=== PATIENT | male | born 1950 | race Caucasian/White ===

== ENCOUNTER 2017-02-26 11:17 | Observation (INO) ==
--- NOTE | 2017-02-26 12:15 | Emergency Department Note ---
Disposition Clinical Impression: Chest pain, Shortness of breath Disposition: Admitted As Inpatient Condition: Good General Adult HPI - General Chief complaint: ED Chest Pain Stated complaint: chest pain Time Seen by Provider: 02/26/17 12:11 Source: patient Limitations: no limitations - History of Present Illness Pain Scale: 6 - Related Data Home Medications Medication Instructions Recorded Confirmed Allopurinol [Zyloprim] 300 mg PO DAILY 02/26/17 02/26/17 Coffee Extract [Green Coffee [place]] 400 mg PO DAILY 02/26/17 02/26/17 Colchicine [Mitigare] 0.6 mg PO DAILY 02/26/17 02/26/17 Garcinia Cambogia 1 tab PO DAILY 02/26/17 Ginkgo Biloba 120 mg PO DAILY 02/26/17 02/26/17 GlipiZIDE [Glipizide Xl] 5 mg PO DAILY 02/26/17 02/26/17 Lisinopril 2.5 mg PO DAILY 02/26/17 02/26/17 Metoprolol [Lopressor] 100 mg PO BID 02/26/17 02/26/17 Oxycodone HCl/Acetaminophen 1 tab PO DAILY 02/26/17 02/26/17 [Percocet 10-325 mg Tablet] Pregabalin [Lyrica] 50 mg PO BID 02/26/17 02/26/17 Warfarin [Coumadin] 1.5 mg PO MOSA 02/26/17 02/26/17 Warfarin [Coumadin] 3 mg PO SUTUWETHFR 02/26/17 02/26/17 Allergies Allergy/AdvReac Type Severity Reaction Status Date / Time No Known Allergies Allergy Verified 12/03/16 23:10 Past Medical History - Past Medical History Medical history: Reports: atrial fibrillation, diabetes, myocardial infarction Psychiatric history: Reports: no psych history - Social History Smoking Status: Never smoker Smokeless Tobacco Status: No Alcohol use: Reports: none Drug use: Reports: none Physical Exam - General Limitations: no limitations General appearance: alert, in no apparent distress Course Vital Signs Temperature 98.2 F 02/26/17 11:31 Pulse Rate 67 02/26/17 11:31 Respiratory Rate 16 02/26/17 11:31 Blood Pressure 108/68 02/26/17 11:31 O2 Sat by Pulse Oximetry 98 02/26/17 11:31 Temperature 97.8 F 02/27/17 10:14 Pulse Rate 60 02/27/17 10:14 Respiratory Rate 16 02/27/17 10:14 Blood Pressure 122/71 02/27/17 10:14 O2 Sat by Pulse Oximetry 94 02/27/17 10:14 Oxygen Delivery Oxygen Delivery Room Air Medical Decision Making - Lab Data Result diagrams: 02/26/17 12:53 02/26/17 12:53 Lab Results 02/26/17 02/26/17 02/26/17 Range/Units 12:30 12:53 12:53 WBC 7.0 (4.3-11.1) K/mcL RBC 3.96 L (4.19-5.50) M/mcL Hgb 12.4 L (12.9-16.9) g/dL Hct 38.1 (37.5-50.1) % MCV 96.2 (83.0-100.0) fL MCH 31.3 (28.0-33.3) pg MCHC 32.5 (31.6-35.5) g/dL RDW 13.2 (11.5-14.5) % Plt Count 112 L (140-400) K/mcL MPV 10.4 (9.4-12.4) fL Immature Gran % 0.1 (0-4) % Seg Neutrophils % 59.1 % Lymphocytes % 27.3 % Monocytes % 9.1 % Eosinophils % 3.8 % Basophils % 0.6 % Neutrophils # 4.2 (1.6-8.9) K/mcL Lymphocytes # 1.9 (0.6-4.6) K/mcL Monocytes # 0.6 (0.0-1.3) K/mcL Eosinophils # 0.3 (0.0-0.6) K/mcL Basophils # 0.0 (0.0-0.2) K/mcL PT 19.2 H (9.4-12.1) Seconds INR 1.8 APTT 35.0 (26.0-36.0) Seconds Sodium (136-145) mEq/L Potassium (3.5-4.5) mEq/L Chloride (98-109) mEq/L Carbon Dioxide (19-29) mEq/L BUN (8-26) mg/dL Creatinine (0.72-1.25) mg/dL Est GFR ( Amer) (> 60) Est GFR (Non-Af Amer) (> 60) BUN/Creatinine Ratio (6-26) Glucose (70-99) mg/dL Calculated Osmolality (280-300) Calcium (8.6-10.8) mg/dL Magnesium (1.6-2.6) mg/dL Troponin I (0-0.03) ng/mL B-Natriuretic Peptide (0-100) pg/mL TSH (0.350-4.840) mcIU/mL Urine Color Yellow (Yellow) Urine Clarity Clear (Clear) Urine pH 6.0 (5.0-8.0) pH Units Ur Specific [place] 1.012 (1.010-1.025) Urine Protein Negative (Neg-Trace) mg/dL Urine Glucose (UA) Normal (Normal) mg/dL Urine Ketones Negative (Negative) mg/dL Urine Blood Negative (Negative) Urine Nitrite Negative (Negative) Urine Bilirubin Negative (Negative) Urine Urobilinogen Normal (Normal) mg/dL Ur Leukocyte Esterase Negative (Negative) 02/26/17 02/26/17 02/26/17 Range/Units 12:53 12:53 12:53 WBC (4.3-11.1) K/mcL RBC (4.19-5.50) M/mcL Hgb (12.9-16.9) g/dL Hct (37.5-50.1) % MCV (83.0-100.0) fL MCH (28.0-33.3) pg MCHC (31.6-35.5) g/dL RDW (11.5-14.5) % Plt Count (140-400) K/mcL MPV (9.4-12.4) fL Immature Gran % (0-4) % Seg Neutrophils % % Lymphocytes % % Monocytes % % Eosinophils % % Basophils % % Neutrophils # (1.6-8.9) K/mcL Lymphocytes # (0.6-4.6) K/mcL Monocytes # (0.0-1.3) K/mcL Eosinophils # (0.0-0.6) K/mcL Basophils # (0.0-0.2) K/mcL PT (9.4-12.1) Seconds INR APTT (26.0-36.0) Seconds Sodium 143 (136-145) mEq/L Potassium 4.2 (3.5-4.5) mEq/L Chloride 107 (98-109) mEq/L Carbon Dioxide 27 (19-29) mEq/L BUN 25 (8-26) mg/dL Creatinine 1.24 (0.72-1.25) mg/dL Est GFR ( Amer) > 60 (> 60) Est GFR (Non-Af Amer) 58 L (> 60) BUN/Creatinine Ratio 20 (6-26) Glucose 85 (70-99) mg/dL Calculated Osmolality 300 (280-300) Calcium 9.5 (8.6-10.8) mg/dL Magnesium 2.3 (1.6-2.6) mg/dL Troponin I 0.00 (0-0.03) ng/mL B-Natriuretic Peptide (0-100) pg/mL TSH 2.310 (0.350-4.840) mcIU/mL Urine Color (Yellow) Urine Clarity (Clear) Urine pH (5.0-8.0) pH Units Ur Specific [place] (1.010-1.025) Urine Protein (Neg-Trace) mg/dL Urine Glucose (UA) (Normal) mg/dL Urine Ketones (Negative) mg/dL Urine Blood (Negative) Urine Nitrite (Negative) Urine Bilirubin (Negative) Urine Urobilinogen (Normal) mg/dL Ur Leukocyte Esterase (Negative) 02/26/17 Range/Units 12:53 WBC (4.3-11.1) K/mcL RBC (4.19-5.50) M/mcL Hgb (12.9-16.9) g/dL Hct (37.5-50.1) % MCV (83.0-100.0) fL MCH (28.0-33.3) pg MCHC (31.6-35.5) g/dL RDW (11.5-14.5) % Plt Count (140-400) K/mcL MPV (9.4-12.4) fL Immature Gran % (0-4) % Seg Neutrophils % % Lymphocytes % % Monocytes % % Eosinophils % % Basophils % % Neutrophils # (1.6-8.9) K/mcL Lymphocytes # (0.6-4.6) K/mcL Monocytes # (0.0-1.3) K/mcL Eosinophils # (0.0-0.6) K/mcL Basophils # (0.0-0.2) K/mcL PT (9.4-12.1) Seconds INR APTT (26.0-36.0) Seconds Sodium (136-145) mEq/L Potassium (3.5-4.5) mEq/L Chloride (98-109) mEq/L Carbon Dioxide (19-29) mEq/L BUN (8-26) mg/dL Creatinine (0.72-1.25) mg/dL Est GFR ( Amer) (> 60) Est GFR (Non-Af Amer) (> 60) BUN/Creatinine Ratio (6-26) Glucose (70-99) mg/dL Calculated Osmolality (280-300) Calcium (8.6-10.8) mg/dL Magnesium (1.6-2.6) mg/dL Troponin I (0-0.03) ng/mL B-Natriuretic Peptide 177 H (0-100) pg/mL TSH (0.350-4.840) mcIU/mL Urine Color (Yellow) Urine Clarity (Clear) Urine pH (5.0-8.0) pH Units Ur Specific [place] (1.010-1.025) Urine Protein (Neg-Trace) mg/dL Urine Glucose (UA) (Normal) mg/dL Urine Ketones (Negative) mg/dL Urine Blood (Negative) Urine Nitrite (Negative) Urine Bilirubin (Negative) Urine Urobilinogen (Normal) mg/dL Ur Leukocyte Esterase (Negative) Attestation Statement - Attestation Attestation: I examined this patient and my medical decision-making was reviewed with the Resident Physician. I agree with the documented findings, disposition and treatment plan as described except to the extent set forth below. Myaw-co-wohh time provided Patient presents with chest pain. History of coronary artery disease, CABG. Appears in no acute distress on exam. EKG reviewed by me showing atrial fibrillation
[2017-02-26 12:47] LABS: Bilirubin,Urine Negative (Negative); Blood,Urine Negative (Negative); Clarity,Urine Clear (Clear); Color,Urine Yellow (Yellow); Glucose,Urine (UA) Normal (Normal); Ketones,Urine Negative (Negative); Leukocyte Esterase,Urine Negative (Negative); Nitrite,Urine Negative (Negative); Protein,Urine Negative (Neg-Trace); Specific Gravity,Urine 1.012 (1.010-1.025); Urobilinogen,Urine Normal (Normal)
[2017-02-26 13:02] LABS: Basophils % 0.6 %; Eosinophils # 0.3 K/mcL (0.0-0.6); Eosinophils % 3.8 %; Hematocrit 38.1 % (37.5-50.1); Hemoglobin 12.4 g/dL (12.9-16.9); Immature Granulocytes % 0.1 % (0-4); Lymphocytes # 1.9 K/mcL (0.6-4.6); Lymphocytes % 27.3 %; Mean Corpuscular HGB Conc 32.5 g/dL (31.6-35.5); Mean Corpuscular Hemoglobin 31.3 pg (28.0-33.3); Mean Corpuscular Volume 96.2 fL (83.0-100.0); Mean Platelet Volume 10.4 fL (9.4-12.4); Monocytes # 0.6 K/mcL (0.0-1.3); Monocytes % 9.1 %; Neutrophils # 4.2 K/mcL (1.6-8.9); Platelet Count 112 K/mcL (140-400); Red Blood Count 3.96 M/mcL (4.19-5.50); Red Cell Distribution Width 13.2 % (11.5-14.5); Segmented Neutrophils % 59.1 %
[2017-02-26 13:05] LABS: INR 1.8; Prothrombin Time 19.2 Seconds (9.4-12.1)
[2017-02-26 13:11] LABS: Magnesium 2.3 mg/dL (1.6-2.6)
[2017-02-26 13:16] LABS: BUN/Creatinine Ratio 20 (6-26); Blood Urea Nitrogen 25 mg/dL (8-26); Calcium 9.5 mg/dL (8.6-10.8); Carbon Dioxide 27 mEq/L (19-29); Chloride 107 mEq/L (98-109); Glucose 85 mg/dL (70-99); Osmolality,Calculated 300 (280-300); Potassium 4.2 mEq/L (3.5-4.5); Sodium 143 mEq/L (136-145); eGFR For African Americans > 60 (> 60); eGFR For Non-African Americans 58 (> 60)
[2017-02-26 13:34] LABS: Thyroid Stimulating Hormone 2.31 mcIU/mL (0.350-4.840)
--- NOTE | 2017-02-26 13:49 | Emergency Department Note ---
Disposition Clinical Impression: Shortness of breath Chest pain Qualifiers: Chest pain type: unspecified Qualified Code(s): R07.9 - Chest pain, unspecified Disposition: Admitted As Inpatient Condition: Good Referrals: Foster Buenrostro MD [Primary Care Provider] - Forms: ED Satisfaction Letter Chest Pain HPI - General Chief Complaint: ED Chest Pain Stated Complaint: chest pain Time Seen by Provider: 02/26/17 12:11 Source: patient Limitations: no limitations Vital Signs Reviewed: Yes Nursing Notes Reviewed: Yes - History of Present Illness HPI Narrative: Patient presents today for evaluation of shortness of breath and chest pain. Shortness of breath has been going on for approximately 1 week. Chest pain has been going on since earlier today. Patient awoke at 5 AM with chest pain. Describes in the center of his chest. Patient describes the pain as sharp. Not worse with inspiration or exertion. Patient states that the pain has intermittently come and gone. Patient is unable to further quantify the pain. Pain is different from previous [place] that was associated with nausea and diaphoresis. Severity scale (1-10): 6 - Related Data Home Medications Medication Instructions Recorded Confirmed Allopurinol [Zyloprim] 300 mg PO DAILY 02/26/17 02/26/17 Coffee Extract [Green Coffee [place]] 400 mg PO DAILY 02/26/17 02/26/17 Colchicine [Mitigare] 0.6 mg PO DAILY 02/26/17 02/26/17 Garcinia Cambogia 1 tab PO DAILY 02/26/17 Ginkgo Biloba 120 mg PO DAILY 02/26/17 02/26/17 GlipiZIDE [Glipizide Xl] 5 mg PO DAILY 02/26/17 02/26/17 Lisinopril 2.5 mg PO DAILY 02/26/17 02/26/17 Metoprolol [Lopressor] 100 mg PO BID 02/26/17 02/26/17 Oxycodone HCl/Acetaminophen 1 tab PO DAILY 02/26/17 02/26/17 [Percocet 10-325 mg Tablet] Pregabalin [Lyrica] 50 mg PO BID 02/26/17 02/26/17 Warfarin [Coumadin] 1.5 mg PO MOSA 02/26/17 02/26/17 Warfarin [Coumadin] 3 mg PO SUTUWETHFR 02/26/17 02/26/17 Allergies Allergy/AdvReac Type Severity Reaction Status Date / Time No Known Allergies Allergy Verified 12/03/16 23:10 Review of Systems: GENERAL: ~No weight change, change in appetite, thirst, fever or chills. HEENT: ~No headache or blurred vision. CARDIOPULMONARY: ~Chest pain; shortness of breath GASTROINTESTINAL: ~No anorexia, nausea or vomiting. GENITOURINARY: ~No dysuria or pyuria. ENDOCRINE: ~No goiter, lethargy or heat/cold intolerance. HEMATOLOGY/ONCOLOGY: ~No pallor, bruising or bleeding. MUSCULOSKELETAL: ~No change in strength. No swelling. NEUROLOGIC: ~No headache or loss of consciousness. PSYCHIATRIC: ~No change in personality, affect or depression. Chest Pain PMH - Past Medical History Medical history: Reports: atrial fibrillation, diabetes, myocardial infarction Psychiatric history: Reports: no psych history - Social History Smoking Status: Never smoker Alcohol use: Reports: none Drug use: Reports: none Physical Exam General: Well appearing, nontoxic, no acute distress Head: Normocephalic Atraumatic Eyes: PERRL, EOMI ENT: Airway patent, no stridor Neck: supple, no meningismus Chest: Lungs clear to auscultation bilateral Cardiac: Regular rate and Irregular rhythm, no murmurs, rubs or gallops Abdomen: soft, nontender, nondistended; no guarding, rebound, or tenderness to percussion Musculoskeletal: Patient is wearing compression stockings. Patient does have what appears to be 2+ pitting edema through the lower extremities. no palpable cord; Skin: No rash, normal skin tone Neuro: Alert and Oriented to person, place, and time; No focal deficit, CN 2-12 symmetric and intact - General Limitations: no limitations General appearance: alert, in no apparent distress Course - Reevaluation(s) Reevaluation #1: Patient continues to be stable at this time. No acute chest pain. Patient does have a significant cardiac history and risk factors. Pain is not hypoxic nor tachycardic. Abdomen soft nontender. Patient has not had a recent cardiac workup. Was unable to make his last scheduled stress test which was earlier this year. Vital Signs Temperature 98.2 F 02/26/17 11:31 Pulse Rate 67 02/26/17 11:31 Respiratory Rate 16 02/26/17 11:31 Blood Pressure 108/68 02/26/17 11:31 O2 Sat by Pulse Oximetry 98 02/26/17 11:31 Temperature 98.2 F 02/26/17 11:31 Pulse Rate 67 02/26/17 11:31 Respiratory Rate 16 02/26/17 11:31 Blood Pressure 108/68 02/26/17 11:31 O2 Sat by Pulse Oximetry 98 02/26/17 11:31 Chest Pain - Lab Data Result diagrams: 02/26/17 12:53 02/26/17 12:53 Lab Results 02/26/17 02/26/17 02/26/17 Range/Units 12:30 12:53 12:53 WBC 7.0 (4.3-11.1) K/mcL RBC 3.96 L (4.19-5.50) M/mcL Hgb 12.4 L (12.9-16.9) g/dL Hct 38.1 (37.5-50.1) % MCV 96.2 (83.0-100.0) fL MCH 31.3 (28.0-33.3) pg MCHC 32.5 (31.6-35.5) g/dL RDW 13.2 (11.5-14.5) % Plt Count 112 L (140-400) K/mcL MPV 10.4 (9.4-12.4) fL Immature Gran % 0.1 (0-4) % Seg Neutrophils % 59.1 % Lymphocytes % 27.3 % Monocytes % 9.1 % Eosinophils % 3.8 % Basophils % 0.6 % Neutrophils # 4.2 (1.6-8.9) K/mcL Lymphocytes # 1.9 (0.6-4.6) K/mcL Monocytes # 0.6 (0.0-1.3) K/mcL Eosinophils # 0.3 (0.0-0.6) K/mcL Basophils # 0.0 (0.0-0.2) K/mcL PT 19.2 H (9.4-12.1) Seconds INR 1.8 APTT 35.0 (26.0-36.0) Seconds Sodium (136-145) mEq/L Potassium (3.5-4.5) mEq/L Chloride (98-109) mEq/L Carbon Dioxide (19-29) mEq/L BUN (8-26) mg/dL Creatinine (0.72-1.25) mg/dL Est GFR ( Amer) (> 60) Est GFR (Non-Af Amer) (> 60) BUN/Creatinine Ratio (6-26) Glucose (70-99) mg/dL Calculated Osmolality (280-300) Calcium (8.6-10.8) mg/dL Magnesium (1.6-2.6) mg/dL Troponin I (0-0.03) ng/mL TSH (0.350-4.840) mcIU/mL Urine Color Yellow (Yellow) Urine Clarity Clear (Clear) Urine pH 6.0 (5.0-8.0) pH Units Ur Specific [place] 1.012 (1.010-1.025) Urine Protein Negative (Neg-Trace) mg/dL Urine Glucose (UA) Normal (Normal) mg/dL Urine Ketones Negative (Negative) mg/dL Urine Blood Negative (Negative) Urine Nitrite Negative (Negative) Urine Bilirubin Negative (Negative) Urine Urobilinogen Normal (Normal) mg/dL Ur Leukocyte Esterase Negative (Negative) 02/26/17 02/26/17 02/26/17 Range/Units 12:53 12:53 12:53 WBC (4.3-11.1) K/mcL RBC (4.19-5.50) M/mcL Hgb (12.9-16.9) g/dL Hct (37.5-50.1) % MCV (83.0-100.0) fL MCH (28.0-33.3) pg MCHC (31.6-35.5) g/dL RDW (11.5-14.5) % Plt Count (140-400) K/mcL MPV (9.4-12.4) fL Immature Gran % (0-4) % Seg Neutrophils % % Lymphocytes % % Monocytes % % Eosinophils % % Basophils % % Neutrophils # (1.6-8.9) K/mcL Lymphocytes # (0.6-4.6) K/mcL Monocytes # (0.0-1.3) K/mcL Eosinophils # (0.0-0.6) K/mcL Basophils # (0.0-0.2) K/mcL PT (9.4-12.1) Seconds INR APTT (26.0-36.0) Seconds Sodium 143 (136-145) mEq/L Potassium 4.2 (3.5-4.5) mEq/L Chloride 107 (98-109) mEq/L Carbon Dioxide 27 (19-29) mEq/L BUN 25 (8-26) mg/dL Creatinine 1.24 (0.72-1.25) mg/dL Est GFR ( Amer) > 60 (> 60) Est GFR (Non-Af Amer) 58 L (> 60) BUN/Creatinine Ratio 20 (6-26) Glucose 85 (70-99) mg/dL Calculated Osmolality 300 (280-300) Calcium 9.5 (8.6-10.8) mg/dL Magnesium 2.3 (1.6-2.6) mg/dL Troponin I 0.00 (0-0.03) ng/mL TSH 2.310 (0.350-4.840) mcIU/mL Urine Color (Yellow) Urine Clarity (Clear) Urine pH (5.0-8.0) pH Units Ur Specific [place] (1.010-1.025) Urine Protein (Neg-Trace) mg/dL Urine Glucose (UA) (Normal) mg/dL Urine Ketones (Negative) mg/dL Urine Blood (Negative) Urine Nitrite (Negative) Urine Bilirubin (Negative) Urine Urobilinogen (Normal) mg/dL Ur Leukocyte Esterase (Negative) - EKG Data EKG attestation: Yes I reviewed and interpreted this EKG. EKG results narrative: EKG shows atrial fibrillation with a ventricular rate of 62 bpm. QRS 115. QTC 451. Patient has no significant ST elevations or depressions. Patient has flattening of the T waves in the inferior leads 3 and aVF. No other significant changes from previous EKG of 07/15/14.
[2017-02-26] MEDS ORDERED: *HR* Morphine 2 MG/ML SYRINGE IVP PRN (15:35)
[2017-02-26] MEDS ORDERED: Naloxone 0.4 MG/ML INJ IVP PRN (15:35)
[2017-02-26] MEDS ORDERED: Acetaminophen 325 MG TABLET PO PRN (15:35)
--- NOTE | 2017-02-26 16:13 | Internal Med History&Physical ---
Date of Encounter: 02/26/17 Time of Encounter: 16:12 Assessment and Plan (1) Chest pain Current visit: Yes Status: Acute Atypical chest pain. However given patient's history of coronary artery disease and reported prior MT, high risk for ACS. We will trend troponins. Keep on telemetry. EKG in a.m. We will schedule cardiac stress test tomorrow. High risk for complications. Qualifiers: Chest pain type: precordial pain Qualified Code(s): R07.2 - Precordial pain (2) Mitral valve prolapse Current visit: Yes Status: Chronic Chronic. We will get 2-D echocardiogram. Per last 2-D echocardiogram done in August, he had moderate prolapse of posterior mitral valve leaflet. (3) Coronary artery disease Current visit: Yes Status: Chronic Continue home medications, aspirin, beta tierra. We will check lipid profile. Qualifiers: Coronary Disease-Associated Artery/Lesion type: [place] artery [place] vs. transplanted heart: [place] heart Associated angina: with stable angina Qualified Code(s): I25.118 - Atherosclerotic heart disease of [place] coronary artery with other forms of angina pectoris (4) Atrial fibrillation Current visit: Yes Status: Chronic Rate controlled. On anticoagulation with Coumadin. INR is subtherapeutic. Continue Coumadin. Qualifiers: Atrial fibrillation type: paroxysmal Qualified Code(s): I48.0 - Paroxysmal atrial fibrillation (5) Diabetes mellitus Current visit: Yes Status: Chronic Check A1c. Place patient on sliding scale insulin. Monitor blood sugars closely. Diabetic diet. Qualifiers: Diabetes mellitus type: type 2 Diabetes mellitus complication status: without complication Diabetes mellitus terminal press operator insulin use: without terminal press operator use Qualified Code(s): E11.9 - Type 2 diabetes mellitus without complications (6) Essential hypertension Current visit: Yes Status: Chronic Blood pressure is well controlled. Continue home medications (7) Congestive heart failure Current visit: Yes Status: Acute Mild congestive heart failure. Will place patient on intravenous Lasix. Qualifiers: Congestive heart failure type: diastolic Congestive heart failure chronicity: acute on chronic Qualified Code(s): I50.33 - Acute on chronic diastolic (congestive) heart failure Internal Medicine - H&P: HPI Chief complaint: Chest pain Admitted From: Emergency Dept Plans for Post Hospital Care: Home History of present illness: Mr. Beltrán is a 66 year old male patient with history of coronary artery disease and prior MT came to the ER with complaints of chest pain. Pain is substernal in location. It has been going on intermittently for about 4-5 days now. He began in the middle of last week and has been getting resolving and relapsing spontaneously since then. Pain is sharp and nonradiating. No associated shortness of breath. However patient has been having increased exertional dyspnea along with pedal edema today. He does have a history of mitral valve prolapse and atrial fibrillation. Patient takes Lasix and metolazone at home to help with his pedal edema. He denies any orthopnea or PND at this time. Past Med Surg Social Fam HX - Past Medical History Attestation: Yes The following information was validated with the patient. Source: patient Medical history: atrial fibrillation, diabetes, hypertension, myocardial infarction, valvular heart disease (mitral valve prolapse) Psychiatric history: no psych history - Past Surgical History Surgical History: other (Open heart surgery for atrial septal defect) - Social History Smoking Status: Never smoker Smokeless Tobacco Status: No Alcohol use: none Drug use: none - Additional Family History Additional family history: Reviewed and found to be noncontributory at this time Internal Medicine - H&P: Meds Allopurinol [Zyloprim] 300 mg PO DAILY 02/26/17 [History] Coffee Extract [Green Coffee [place]] 400 mg PO DAILY 02/26/17 [History] Colchicine [Mitigare] 0.6 mg PO DAILY 02/26/17 [History] Garcinia Cambogia 1 tab PO DAILY 02/26/17 [History] Ginkgo Biloba 120 mg PO DAILY 02/26/17 [History] GlipiZIDE [Glipizide Xl] 5 mg PO DAILY 02/26/17 [History] Lisinopril 2.5 mg PO DAILY 02/26/17 [History] Metoprolol [Lopressor] 100 mg PO BID 02/26/17 [History] Oxycodone HCl/Acetaminophen [Percocet 10-325 mg Tablet] 1 tab PO DAILY 02/26/17 [History] Pregabalin [Lyrica] 50 mg PO BID 02/26/17 [History] Warfarin [Coumadin] 1.5 mg PO MOSA 02/26/17 [History] Warfarin [Coumadin] 3 mg PO SUTUWETHFR 02/26/17 [History] 3 Allergy/AdvReac Type Severity Reaction Status Date / Time No Known Allergies Allergy Verified 12/03/16 23:10 All Systems PM: A 10-system review of systems was performed and is negative for pertinent findings except as documented above in the HPI. - Constitutional Constitutional: no chills, no fever(s), no night sweats - EENT Eyes: no change in vision, no discharge, no pain, no photophobia Ears: no ear discharge, no ear pain, no tinnitus Nose, mouth and throat: no dysphagia, no nasal discharge, no neck pain, no sore throat - Cardiovascular Cardiovascular ROS IM: chest pain, dyspnea on exertion, no diaphoresis, no dyspnea, no lightheadedness, no palpitations, no syncope - Respiratory Respiratory: no cough, no dyspnea, no wheezing, no excessive phlegm production - Gastrointestinal Gastrointestinal: no abdominal pain, no diarrhea, no hematemesis, no hematochezia, no melena, no nausea, no vomiting - Musculoskeletal Musculoskeletal ROS IM: no numbness, no tingling - Integumentary Integumentary IM: no rash, no unusual bruising - Neurological Neurological ROS: no confusion, no convulsions, no focal weakness, no numbness, no tingling, no tremor(s) - Hematologic/Lymphatic Hematologic/Lymphatic: no easy bruising - Constitutional Vitals: Temp Pulse Resp BP Pulse Ox 98.2 F 72 16 137/89 97 02/26/17 11:31 02/26/17 14:40 02/26/17 11:31 02/26/17 14:40 02/26/17 14:40 General appearance: Present: cooperative, mild distress, A&O X 3, answers questions appropriately - Neck Neck exam general surgery: Present: supple, trachea midline. Absent: lymphadenopathy - Respiratory Respiratory exam: Present: CTAB. Absent: accessory muscle use, rales, rhonchi, wheezes - Cardiovascular Cardiovascular exam: Present: RRR, +S1, +S2. Absent: diastolic murmur, gallop, rubs, systolic murmur - GI/Abdominal GI/Abdominal exam: Present: normal bowel sounds, soft, no peritoneal signs. Absent: distended, tenderness - Extremities Exam Extremities exam: Present: warm, radial pulses palpable and symmetrical. Absent : calf tenderness, cyanotic, pedal edema - Neurological Exam Neurological exam: Present: alert, CN II-XII intact, oriented X3, no focal deficits. Absent: facial droop, speech deficit - Skin Skin exam: Present: dry, intact Internal Med - H&P Results - Labs CBC & Chem 7: 02/26/17 12:53 02/26/17 12:53 - EKG Data -: EKG Interpreted by Myself - EKG Data Prior EKG available for review: yes When compared to previous EKG: there is no significant change EKG comments: 02/26/17 16:12 Atrial fibrillation and incomplete right bundle branch block 02/26/17 17:12 - Impressions Impressions Chest X-Ray 02/26/17 11:46 IMPRESSION: 1. No active pulmonary disease. 2. Stable cardiomegaly without overt failure. D/ / Ezequiel Haq MD / Ezequiel Haq MD Interpreting Provider: Ezequiel Haq MD
[2017-02-26] MEDS ORDERED: Dextrose Gel 15 GM PO PRN ×2 (17:19)
[2017-02-26] MEDS ORDERED: *HR* Dextrose 50 % in Water (Syg) 50 ML SYRINGE IVP PRN (17:19)
[2017-02-26] MEDS ORDERED: D5% in Water 1,000 ML IVC PRN (17:19)
[2017-02-26] MEDS: Furosemide 40 MG/4 ML VIAL IVP SCH (17:43)
[2017-02-26] MEDS ORDERED: *HR* Warfarin 3 MG TABLET PO ONE (18:00)
[2017-02-26] MEDS ORDERED: Warfarin perPT PO PRN (18:00)
[2017-02-26] MEDS: Pregabalin 50 MG CAPSULE PO SCH (20:07)
[2017-02-26] MEDS: Metoprolol 100 MG TABLET PO SCH (20:07)
[2017-02-26] MEDS ORDERED: Insulin LISPRO 300 UNITS/3 ML VIAL SQ SCH (21:00)
[2017-02-27 02:30] LABS: Hemoglobin A1C 5.3 %
[2017-02-27 02:32] LABS: Chol/HDL Ratio 6.3 (0-4.9)
[2017-02-27] MEDS ORDERED: Regadenoson 0.4 MG/5 ML SYRINGE IVP ONE (05:40)
[2017-02-27] MEDS ORDERED: Colchicine 0.6 MG TABLET PO SCH (09:00)
[2017-02-27] MEDS ORDERED: *HR* OxyCODONE/APAP 10/325 TABLET PO SCH (09:00)
[2017-02-27] MEDS ORDERED: Aspirin Enteric Coated 81 MG Tablet PO SCH (09:00)
[2017-02-27] MEDS: Pregabalin 50 MG CAPSULE PO SCH (10:14)
[2017-02-27] MEDS: Metoprolol 100 MG TABLET PO SCH (10:16)
[2017-02-27] MEDS: Furosemide 40 MG/4 ML VIAL IVP SCH (10:16)
[2017-02-27] MEDS: Insulin LISPRO 300 UNITS/3 ML VIAL SQ SCH ×3 (10:22→16:54)
[2017-02-27 15:25] LABS: INR 1.7; Prothrombin Time 18.8 Seconds (9.4-12.1)
--- NOTE | 2017-02-27 16:01 | Electrocardiograph Report ---
[address] [address] Test Date: 2017-02-26 Pat Name: Wesly Beltrán Department: 102 Room: 3B Gender: M Associate Software Developer: : [id number] Requested By: Narayan Woodall Order Number: [id number] Reading MD: Derrick Hamilton Measurements Intervals [place] Rate: 62 P: MO: 0 QRS: 34 QRSD: 115 T: 48 QT: 447 QTc: 451 Interpretive Statements ATRIAL FIBRILLATION LOW QRS VOLTAGE IN PRECORDIAL LEADS INCOMPLETE RIGHT BUNDLE BRANCH BLOCK MINIMAL ST DEPRESSION ABNORMAL RHYTHM ECG Electronically Signed On 02-27-2017 16:00:20 EDT by Derrick Hamilton
[2017-02-27 16:47] VITALS: BP 114/59
--- NOTE | 2017-02-27 16:56 | Discharge Summary ---
Date of Encounter: 02/27/17 Time of Encounter: 10:35 - Discharge Diagnosis (1) Chest pain Priority: Secondary Status: Acute Comments: Patient reported to the emergency department with 5 day history of sharp, jabbing chest pains with exertion. He denies any radiation, no nausea vomiting or diaphoresis. He reports increasing dyspnea, as well as increasing lower extremity edema. Chest pain became increasingly worse over the 5 days, did not increase in frequency or duration. Yesterday morning the pain awakened him at 5 AM and he was unable to return to sleep. Family encouraged him to come to the emergency department for evaluation. Due to his past history of coronary artery disease and reported WA, he is at high risk for acute coronary syndrome. He was admitted for evaluation and testing. Chest x-ray was negative for any acute process, was positive for cardio megaly. Patient's vital signs and stable throughout the visit. BNP 177, only mildly elevated. His lungs are clear and diminished in posterior valerio. Stress test had a medium sized fixed perfusion defect that represented artifact, there is no ischemia or infarct. Gated EF of 50%. A limited echo with LVEF of 55%, normal systolic function, RV mildly dilated with probable mild decrease in function. There is severe biatrial enlargement and there is prolapsing posterior leaflet associated with eccentric mitral regurgitation. Patient will need to have a KUSHAL outpatient for better visualization. He will need to follow up with cardiology in the clinic as well. Patient currently denies chest pain and states that he feels better. His vitals are stable, all testing has been negative. He is stable and ready for discharge. Qualifiers: Chest pain type: precordial pain Qualified Code(s): R07.2 - Precordial pain (2) Mitral valve prolapse Priority: Secondary Status: Chronic Comments: Per patient history. (3) Coronary artery disease Priority: Secondary Status: Chronic Comments: Continue aspirin, beta tierra. Patient denies chest pain today. Lipid panel only mildly elevated. Cholesterol 201, HDL 32. Continue Zocor. Qualifiers: Coronary Disease-Associated Artery/Lesion type: [place] artery [place] vs. transplanted heart: king [place] heart Associated angina: with stable angina Qualified Code(s): I25.118 - Atherosclerotic heart disease of [place] coronary artery with other forms of angina pectoris (4) Atrial fibrillation Priority: Secondary Status: Chronic Comments: Rate controlled with beta tierra. Coumadin for anticoagulation. Continue medications at home. INR remained subtherapeutic today at 1.7. Continue to monitor labs on outpatient basis. Qualifiers: Atrial fibrillation type: paroxysmal Qualified Code(s): I48.0 - Paroxysmal atrial fibrillation (5) Diabetes mellitus Priority: Secondary Status: Chronic Comments: Well-controlled diabetes. A1c is 5.3. Continue Accu-Cheks at home. Qualifiers: Diabetes mellitus type: type 2 Diabetes mellitus complication status: without complication Diabetes mellitus supervisor press room insulin use: without supervisor press room use Qualified Code(s): E11.9 - Type 2 diabetes mellitus without complications (6) Essential hypertension Priority: Secondary Status: Chronic Comments: Blood pressure well controlled in inpatient setting. Continue home medications. Continue to monitor vital signs at home, share with primary care. (7) Congestive heart failure Priority: Secondary Status: Chronic Comments: Patient with chronic CHF. Per echo in August,, there is normal LV systolic function, indeterminant LVDD. Patient in mild exacerbation. He states that he does feel significantly better and that his lower extremity edema has improved. Patient without pretibial edema at this time, no edema to ankles or bilateral feet. Patient does have some firm edema distal to knee, however patient reports profound improvement. Qualifiers: Congestive heart failure type: unspecified congestive heart failure type Congestive heart failure chronicity: acute on chronic Qualified Code(s): I50.9 - Heart failure, unspecified (8) DVT prophylaxis Priority: Secondary Status: Acute Comments: Patient on Coumadin. - Discharge Medications Home Medications: Allopurinol [Zyloprim] 300 mg PO DAILY 02/26/17 [History] Coffee Extract [Green Coffee [place]] 400 mg PO DAILY 02/26/17 [History] Colchicine [Mitigare] 0.6 mg PO DAILY 02/26/17 [History] Garcinia Cambogia 1 tab PO DAILY 02/26/17 [History] Ginkgo Biloba 120 mg PO DAILY 02/26/17 [History] GlipiZIDE [Glipizide Xl] 5 mg PO DAILY 02/26/17 [History] Lisinopril 2.5 mg PO DAILY 02/26/17 [History] Metoprolol [Lopressor] 100 mg PO BID 02/26/17 [History] Oxycodone HCl/Acetaminophen [Percocet 10-325 mg Tablet] 1 tab PO DAILY 02/26/17 [History] Pregabalin [Lyrica] 50 mg PO BID 02/26/17 [History] Warfarin [Coumadin] 1.5 mg PO MOSA 02/26/17 [History] Warfarin [Coumadin] 3 mg PO SUTUWETHFR 02/26/17 [History] Simvastatin [Zocor] 10 mg PO HS tablet 02/27/17 [Rx] Allergies/Adverse Reactions: 3 Allergy/AdvReac Type Severity Reaction Status Date / Time No Known Allergies Allergy Verified 12/03/16 23:10 Procedures/tests Complete & Pending: Procedures Performed prior 72 hours Category Date Time Status NM melida perf SPECT multi [NM] Routine Exams 02/26/17 16:25 Taken EKG [ECG 12 lead ECG] [ECG] AM 0600 Y 02/27/17 06:00 Ordered EV limited echocardiogram Routine Y 02/27/17 16:24 Completed SP pharm nuclear stress Routine Y 02/27/17 07:15 Completed Date of admission: 02/26/17 14:13 Primary care physician: Foster Buenrostro MD Discharging clinician: Lakeisha Copeland Anticipated date of discharge: 02/27/17 - Patient Status Disposition: Home, Self-Care Functional capacity at discharge: independent ambulation Overall status at discharge: patient is back to baseline - Discharge Instructions Follow Up With: Foster Buenrostro MD [Primary Care Provider] - 03/02/17 10:30 am Additional Instructions: Postoperative primary care provider in the next 7-10 days for follow-up visit. Continue home medications. Resume normal activities as tolerated. Weigh yourself daily. Maintain fluid restriction to about 1.5 L daily. Continue your home dose of Lasix. - Diet and Activity Activity: increase activity as tolerated Diet: diabetic diet, low fat, low cholesterol Hospital course: Mr. Beltrán is a 66 year old male with pmh of CAD, [place], MVP, afib, DM, HTN, CHF presented to the ED with c/o chest pain for 4-5 days. Pt reports that it was intermittent, sharp and nonradiating. No SOB, N/v diaphoresis. Pt reports increasing dyspnea and peripheral edema. Now he reports improved edema and denies SOB. States that he feels better and is ready for discharge. See assessment and plan for hospital course. Labs WNL, VS stable and WNL. Pt is ready for discharge. - Time Spent with Patient Total time spent providing and/or coordinating discharge services: Less than 30 minutes - Constitutional Vitals: Temp Pulse Resp BP Pulse Ox 98 F 65 16 114/59 95 02/27/17 16:46 02/27/17 16:46 02/27/17 16:46 02/27/17 16:46 02/27/17 16:46 General appearance: Present: cooperative, mild distress, A&O X 3, pleasant, obese, answers questions appropriately - Head Head exam: Present: atraumatic, normal inspection, normocephalic - Eye Eye exam: Present: normal appearance, conjuntiva pink, sclera anicteric - Neck Neck exam general surgery: Present: supple, trachea midline. Absent: lymphadenopathy, tenderness - Respiratory Respiratory exam: Present: CTAB. Absent: accessory muscle use, rales, respiratory distress, rhonchi, wheezes - Cardiovascular Cardiovascular exam: Absent: diastolic murmur, gallop, rubs, systolic murmur Additional comments: 2/6 murmur heard LSB - GI/Abdominal GI/Abdominal exam: Present: normal bowel sounds, soft. Absent: distended, hepatomegaly, tenderness - Extremities Exam Extremities exam: Present: normal capillary refill, warm, radial pulses palpable and symmetrical. Absent: calf tenderness, cyanotic, pedal edema, tenderness Additional comments: Patient with +1 nonpitting edema to bilateral lower extremities. Patient with firm or edema just distal to knees. - Neurological Exam Neurological exam: Present: alert, oriented X3, no focal deficits. Absent: facial droop, speech deficit - Skin Skin exam: Present: dry, intact, normal color, warm. Absent: rash - VTE Documentation of Mechanical Device: Graduated compression elastic hosiery
[2017-02-27] MEDS ORDERED: *HR* Warfarin 3 MG TABLET PO ONE (18:00)
== END 2017-02-27 18:49 | disposition home or self-care (01) ==
LOC: 3BNU 11:17 → EMEROO 11:17 → 3BNU 15:01
PROVIDERS: ADMIT Internal Medicine; ATTEND Registered Nurse

== ENCOUNTER 2019-04-20 22:44 | Inpatient (IN) ==
[2019-04-20] MEDS ORDERED: *HR* Dextrose 50 % in Water (Syg) 50 ML SYRINGE IVP ONE (22:54)
[2019-04-20] MEDS ORDERED: *HR* Dextrose 50 % in Water (Syg) 50 ML SYRINGE ONE (22:55)
[2019-04-20] MEDS: Octreotide 400 MCG in 0.9 % Sodium Chloride 100 ML IVC SCH (23:45)
[2019-04-20 23:59] LABS: Eosinophils # 0.1 K/mcL (0.0-0.6); Eosinophils % 0.5 %; Hematocrit 36.4 % (37.5-50.1); Immature Granulocytes % 0.5 % (0-4); Lymphocytes # 0.7 K/mcL (0.6-4.6); Lymphocytes % 5.2 %; Mean Corpuscular Hemoglobin 32.8 pg (28.0-33.3); Mean Corpuscular Volume 99.5 fL (83.0-100.0); Mean Platelet Volume 10.6 fL (9.4-12.4); Monocytes # 1.1 K/mcL (0.0-1.3); Monocytes % 7.7 %; Platelet Count 118 K/mcL (140-400); Red Blood Count 3.66 M/mcL (4.19-5.50); Red Cell Distribution Width 15.1 % (11.5-14.5); Segmented Neutrophils % 86.1 %
[2019-04-21 00:08] LABS: INR 5.8; Prothrombin Time 66.3 Seconds (9.4-12.1)
[2019-04-21 00:25] LABS: Bilirubin,Urine Negative (Negative); Blood,Urine Large (Negative); Clarity,Urine Cloudy (Clear); Color,Urine Yellow (Yellow); Glucose,Urine (UA) Normal (Normal); Ketones,Urine Negative (Negative); Leukocyte Esterase,Urine Negative (Negative); Nitrite,Urine Negative (Negative); PH,Urine 5.5 pH Units (5.0-8.0); Protein,Urine 100 mg/dL (Neg-Trace); Specific Gravity,Urine 1.021 (1.010-1.025); Urobilinogen,Urine Normal (Normal)
[2019-04-21] MEDS ORDERED: D5% in 0.9% NACL 1,000 ML IVC STA (00:26)
[2019-04-21 00:27] LABS: Bacteria,Urine None Seen per hpf (None-Few); Hyaline Casts,Urine Few per lpf (None-Few); Squamous Epithelial Cell,Urine Many per lpf (None-Few)
[2019-04-21 00:31] LABS: Albumin 3.7 g/dL (3.5-5.7); Albumin/Globulin Ratio 1.5 (1.1-2.2); Bilirubin,Total 0.7 mg/dL (0.3-1.0); Calcium 8.9 mg/dL (8.6-10.3); Globulin 2.5 g/dL (2.4-3.5); Total Protein 6.2 g/dL (6.4-8.9); Troponin I 0.03 ng/mL (< 0.04)
[2019-04-21 00:38] LABS: RBC,Urine 0-3 per hpf (0-3); Yeast,Urine Few per hpf (None Seen)
[2019-04-21] MEDS ORDERED: *HR* Dextrose 50 % in Water (Syg) 50 ML SYRINGE IVP ONE (01:00)
[2019-04-21] MEDS ORDERED: D5% in 0.9% NACL 1,000 ML IVC SCH (01:00)
[2019-04-21] MEDS ORDERED: *HR* Dextrose 50 % in Water (Syg) 50 ML SYRINGE ONE (01:03)
[2019-04-21] MEDS ORDERED: Calcium Gluconate 1,000 MG/10 ML VIAL IVPB ONE (01:05)
[2019-04-21] MEDS ORDERED: DEXTROSE IVC SCH (01:30)
[2019-04-21] MEDS ORDERED: WATER IVC SCH (01:30)
[2019-04-21] MEDS ORDERED: D5 IVC SCH (01:30)
[2019-04-21] MEDS ORDERED: NACL IVC SCH (01:30)
[2019-04-21] MEDS ORDERED: Calcium Gluconate 1gm/50mL 2 GM/100 ML BAG IVPB ONE (01:30)
[2019-04-21] MEDS ORDERED: Furosemide 40 MG/4 ML VIAL IVP ONE (02:34)
[2019-04-21] MEDS ORDERED: *HR* Phytonadione 10 MG/ML AMPUL SQ ONE (03:22)
[2019-04-21] MEDS: Octreotide 400 MCG in 0.9 % Sodium Chloride 100 ML IVC SCH ×6 (03:30→20:48)
[2019-04-21] MEDS: D10% in Water 500 ML IVC SCH (04:55)
[2019-04-21] MEDS ORDERED: Naloxone 0.4 MG/ML INJ IVP PRN (05:30)
[2019-04-21 05:52] LABS: VBG HCO3 21 mEq/L (21-27); VBG PCO2 44 mmHg (41-51); VBG PH 7.28 pH Units (7.32-7.42); VBG PO2 92 mmHg (25-50)
[2019-04-21] MEDS ORDERED: Cefepime HCl 2,000 MG in Water for inj. (sterile) 20 ML IVPB SCH (06:00)
[2019-04-21 06:05] LABS: Activated Partial Thrombo Time 40.9 Seconds (26.0-36.0)
[2019-04-21 06:14] LABS: Albumin 3.8 g/dL (3.5-5.7); Albumin/Globulin Ratio 1.5 (1.1-2.2); Bilirubin,Total 0.8 mg/dL (0.3-1.0); Calcium 8.7 mg/dL (8.6-10.3); Globulin 2.5 g/dL (2.4-3.5); Potassium 6.4 mEq/L (3.5-5.1); Total Protein 6.3 g/dL (6.4-8.9)
[2019-04-21 06:15] LABS: Magnesium 2.8 mg/dL (1.6-2.6); Phosphorous 5.5 mg/dL (2.7-4.5); Troponin I 0.03 ng/mL (< 0.04)
[2019-04-21 06:17] LABS: Prothrombin Time 64.7 Seconds (9.4-12.1)
[2019-04-21 06:18] LABS: INR 5.7
[2019-04-21 06:23] LABS: Eosinophils # 0.1 K/mcL (0.0-0.6); Eosinophils % 0.5 %; Hematocrit 37.4 % (37.5-50.1); Immature Granulocytes % 0.5 % (0-4); Immature Platelets 3.4 % (1.1-6.1); Lymphocytes # 0.7 K/mcL (0.6-4.6); Lymphocytes % 6.7 %; Mean Corpuscular HGB Conc 32.1 g/dL (31.6-35.5); Mean Corpuscular Hemoglobin 32.5 pg (28.0-33.3); Mean Corpuscular Volume 101.4 fL (83.0-100.0); Mean Platelet Volume 11.3 fL (9.4-12.4); Monocytes # 0.8 K/mcL (0.0-1.3); Monocytes % 7.2 %; Red Blood Count 3.69 M/mcL (4.19-5.50); Red Cell Distribution Width 15.3 % (11.5-14.5); Segmented Neutrophils % 85.1 %
[2019-04-21 06:30] LABS: Neutrophils # 9.4 K/mcL (1.6-8.9); Platelet Count 88 K/mcL (140-400)
[2019-04-21] MEDS ORDERED: 0.9 % Sodium Chloride 250 ML IVC PRN (08:02)
[2019-04-21] MEDS: Clindamycin 900 MG/50 ML 900 MG/50 ML IV.SOLN IVPB SCH ×3 (08:02→23:43)
[2019-04-21] MEDS ORDERED: 0.9 % Sodium Chloride 1,000 ML PRIME SCH (08:15)
[2019-04-21 09:08] LABS: Hepatitis B Surface Antibody < 3.10 mIU/mL
[2019-04-21 09:19] LABS: Hepatitis B Surface Antigen Nonreactive (Nonreactive)
[2019-04-21 09:23] LABS: C-Reactive Protein < 5 mg/L (Less than 10)
[2019-04-21 09:48] LABS: Hepatitis B Core IgM Nonreactive (Nonreactive)
[2019-04-21] MEDS ORDERED: 0.9 % Sodium Chloride 500 ML ONE (10:38)
[2019-04-21] MEDS ORDERED: Vancomycin 1 EACH in 0.9 % Sodium Chloride 250 ML IVPB PRN (12:00)
[2019-04-21 12:25] LABS: Creatinine,Urine 50 mg/dL
[2019-04-21] MEDS: Hydrocortisone Sodium Succ 100 MG/2 ML VIAL IVP SCH ×3 (12:37→23:44)
[2019-04-21] MEDS: *HR* OxyCODONE/APAP 10/325 TABLET PO SCH ×2 (14:03→20:08)
[2019-04-21] MEDS ORDERED: *HR* Heparin 5,000 UNIT/ML VIAL ONE (14:34)
[2019-04-21] MEDS ORDERED: Cefepime HCl 2,000 MG in Water for inj. (sterile) 20 ML IVP SCH (18:00)
[2019-04-21 20:23] LABS: INR 2.4; Prothrombin Time 26.8 Seconds (9.4-12.1)
[2019-04-21] MEDS: Melatonin 3 MG TABLET PO PRN (21:36)
[2019-04-22] MEDS: Octreotide 400 MCG in 0.9 % Sodium Chloride 100 ML IVC SCH (00:13)
[2019-04-22 04:46] LABS: Hematocrit 30.1 % (37.5-50.1); Hemoglobin 9.9 g/dL (12.9-16.9); Immature Granulocytes % 0.5 % (0-4); Immature Platelets 4.6 % (1.1-6.1); Lymphocytes # 0.3 K/mcL (0.6-4.6); Lymphocytes % 4.1 %; Mean Corpuscular HGB Conc 32.9 g/dL (31.6-35.5); Mean Corpuscular Hemoglobin 32.4 pg (28.0-33.3); Mean Corpuscular Volume 98.4 fL (83.0-100.0); Mean Platelet Volume 11.1 fL (9.4-12.4); Monocytes # 0.6 K/mcL (0.0-1.3); Monocytes % 7.2 %; Neutrophils # 6.7 K/mcL (1.6-8.9); Prothrombin Time 22.3 Seconds (9.4-12.1); Red Blood Count 3.06 M/mcL (4.19-5.50); Red Cell Distribution Width 14.8 % (11.5-14.5); Segmented Neutrophils % 88.2 %; White Blood Count 7.6 K/mcL (4.3-11.1)
[2019-04-22 04:51] LABS: Platelet Count 67 K/mcL (140-400)
[2019-04-22 05:00] LABS: Calcium 7.7 mg/dL (8.6-10.3); Magnesium 2.4 mg/dL (1.6-2.6); Phosphorous 6.2 mg/dL (2.7-4.5); Potassium 5.5 mEq/L (3.5-5.1)
[2019-04-22] MEDS: D10% in Water 500 ML IVC SCH (05:49)
[2019-04-22] MEDS: Hydrocortisone Sodium Succ 100 MG/2 ML VIAL IVP SCH (05:49)
[2019-04-22] MEDS ORDERED: 0.9 % Sodium Chloride 250 ML IVC PRN (07:13)
[2019-04-22] MEDS ORDERED: D5% in Water 1,000 ML IVC PRN (08:31)
[2019-04-22] MEDS ORDERED: Dextrose Gel 15 GM/37.5 ML TUBE PO PRN ×2 (08:31)
[2019-04-22] MEDS ORDERED: *HR* Dextrose 50 % in Water (Syg) 50 ML SYRINGE IVP PRN (08:31)
[2019-04-22] MEDS: *HR* OxyCODONE/APAP 10/325 TABLET PO SCH ×2 (08:58→20:03)
[2019-04-22] MEDS: Insulin LISPRO 300 UNITS/3 ML VIAL SQ SCH ×3 (08:58→16:41)
[2019-04-22] MEDS: Clindamycin 900 MG/50 ML 900 MG/50 ML IV.SOLN IVPB SCH (12:41)
[2019-04-22] MEDS ORDERED: Hydrocortisone Sodium Succ 100 MG/2 ML VIAL IVP SCH (16:00)
[2019-04-22] MEDS: Melatonin 3 MG TABLET PO PRN (20:03)
[2019-04-22 20:21] VITALS: BP 132/66
[2019-04-22] MEDS ORDERED: Insulin LISPRO 300 UNITS/3 ML VIAL SQ SCH (21:00)
[2019-04-22] MEDS ORDERED: Aminoglycoside Consult 1 EACH MC ONE (21:27)
== END 2019-04-22 21:28 | disposition short-term general hospital (02) | DRG 871 ==
LOC: EMEROOARM 22:44 → ICNU 22:44
PROVIDERS: ADMIT Internal Medicine; ATTEND Internal Medicine

== ENCOUNTER 2019-05-31 17:13 | Inpatient (IN) ==
[2019-05-31] MEDS ORDERED: Ipratropium/Albuterol Neb 3 ML IH ONE (17:43)
[2019-05-31 17:53] LABS: Basophils % 0.2 %; Hematocrit 30.1 % (37.5-50.1); Immature Granulocytes % 0.6 % (0-4); Lymphocytes # 0.5 K/mcL (0.6-4.6); Lymphocytes % 4.1 %; Mean Corpuscular HGB Conc 33.2 g/dL (31.6-35.5); Mean Corpuscular Hemoglobin 32.2 pg (28.0-33.3); Mean Corpuscular Volume 96.8 fL (83.0-100.0); Mean Platelet Volume 9.2 fL (9.4-12.4); Monocytes # 1.1 K/mcL (0.0-1.3); Monocytes % 9.2 %; Neutrophils # 10.1 K/mcL (1.6-8.9); Platelet Count 152 K/mcL (140-400); Red Blood Count 3.11 M/mcL (4.19-5.50); Red Cell Distribution Width 15.9 % (11.5-14.5); Segmented Neutrophils % 85.9 %; White Blood Count 11.7 K/mcL (4.3-11.1)
[2019-05-31 18:15] LABS: BUN/Creatinine Ratio 9 (6-26); Blood Urea Nitrogen 12 mg/dL (8-23); Calcium 7.9 mg/dL (8.6-10.3); Carbon Dioxide 27 mEq/L (23-29); Chloride 99 mEq/L (98-107); Glucose 88 mg/dL (70-105); Magnesium 1.5 mg/dL (1.6-2.6); Osmolality,Calculated 285 (280-300); Potassium 2.7 mEq/L (3.5-5.1); Sodium 138 mEq/L (136-145); eGFR For African Americans > 60 (> 60); eGFR For Non-African Americans 53 (> 60)
[2019-05-31 18:19] LABS: Troponin I 0.04 ng/mL (< 0.04)
[2019-05-31] MEDS ORDERED: Potassium Chloride 40 MEQ, Lidocaine 1% 2 ML in 0.9 % Sodium Chloride 500 ML IVPB ONE (18:20)
[2019-05-31] MEDS ORDERED: Aspirin 325 MG TABLET PO ONE (18:22)
[2019-05-31 18:51] LABS: VBG HCO3 25 mEq/L (21-27); VBG PCO2 24 mmHg (41-51); VBG PH 7.61 pH Units (7.32-7.42); VBG PO2 212 mmHg (25-50)
[2019-05-31] MEDS ORDERED: Calcium Gluconate 1gm/50mL 1 GM/50 ML BAG IVPB ONE (20:40)
[2019-05-31] MEDS ORDERED: Magnesium Sulfate 3 GM in 0.9 % Sodium Chloride 100 ML IVPB ONE (20:41)
[2019-05-31 20:50] LABS: INR 5.2; Prothrombin Time 59.7 Seconds (9.4-12.1)
[2019-05-31] MEDS ORDERED: *HR* Dextrose 50 % in Water (Syg) 50 ML SYRINGE IVP PRN (20:50)
[2019-05-31] MEDS ORDERED: Naloxone 0.4 MG/ML INJ IVP PRN (20:50)
[2019-05-31] MEDS ORDERED: D5% in Water 1,000 ML IVC PRN (20:50)
[2019-05-31] MEDS ORDERED: Dextrose Gel 15 GM/37.5 ML TUBE PO PRN ×2 (20:50)
[2019-05-31] MEDS ORDERED: Nystatin Cream 15 GM TUBE TP PRN (21:05)
[2019-05-31] MEDS: Potassium Chloride Elixir 20 MEQ/15 ML UDC PO SCH (22:21)
[2019-05-31] MEDS: cefTRIAXone 2,000 MG in Water for inj. (sterile) 20 ML IVP SCH (22:24)
[2019-06-01] MEDS: Potassium Chloride Elixir 20 MEQ/15 ML UDC PO SCH (00:55)
[2019-06-01] MEDS: Insulin LISPRO 300 UNITS/3 ML VIAL SQ SCH ×4 (00:55→16:40)
[2019-06-01 03:28] LABS: Basophils % 0.1 %; Hematocrit 28.2 % (37.5-50.1); Hemoglobin 9.4 g/dL (12.9-16.9); Immature Granulocytes % 0.3 % (0-4); Immature Reticulocyte % 25.8 % (11.0-38.0); Lymphocytes # 0.8 K/mcL (0.6-4.6); Lymphocytes % 8.8 %; Mean Corpuscular HGB Conc 33.3 g/dL (31.6-35.5); Mean Corpuscular Hemoglobin 32.2 pg (28.0-33.3); Mean Corpuscular Volume 96.6 fL (83.0-100.0); Mean Platelet Volume 9.7 fL (9.4-12.4); Monocytes # 0.7 K/mcL (0.0-1.3); Monocytes % 7.8 %; Neutrophils # 7.5 K/mcL (1.6-8.9); Platelet Count 137 K/mcL (140-400); Red Blood Count 2.92 M/mcL (4.19-5.50); Red Cell Distribution Width 15.9 % (11.5-14.5); Retculocyte # 0.07 M/mcL (0.05-0.10); Reticulocyte % 2.3 % (1.6-2.8)
[2019-06-01 03:49] LABS: Albumin/Globulin Ratio 1.2 (1.1-2.2); Bilirubin,Total 1.2 mg/dL (0.3-1.0); Calcium 8.2 mg/dL (8.6-10.3); Chol/HDL Ratio 7.9 (0-4.9); Globulin 2.5 g/dL (2.4-3.5); Phosphorous 1.9 mg/dL (2.7-4.5); Potassium 3.2 mEq/L (3.5-5.1); Total Protein 5.5 g/dL (6.4-8.9)
[2019-06-01 03:53] LABS: INR 6.1; Prothrombin Time 69.5 Seconds (9.4-12.1)
[2019-06-01] MEDS ORDERED: Furosemide 40 MG/4 ML VIAL IVP SCH (05:32)
[2019-06-01] MEDS ORDERED: Potassium Chloride Elixir 20 MEQ/15 ML UDC PO ONE (05:37)
[2019-06-01] MEDS: Metoprolol 100 MG TABLET PO SCH ×2 (09:05→21:21)
[2019-06-01] MEDS: GuaiFENesin Liq 200 MG/10 ML UDC PO PRN ×2 (09:06→21:25)
[2019-06-01 11:46] LABS: ABG Base Excess 3 mEq/L (-2 to 3); ABG HCO3 27 mEq/L (21-27); ABG Oxygen Saturation 95 % (95-98); ABG PCO2 40 mmHg (35-45); ABG PH 7.44 pH Units (7.32-7.45); ABG PO2 73 mmHg (85-104); ABG TCO2 28 mEq/L (20-26)
[2019-06-01] MEDS: Furosemide 40 MG TABLET PO SCH (16:48)
[2019-06-01 17:25] LABS: Campylobacter by PCR Not detected (Not detect)
[2019-06-01 17:26] LABS: Adenovirus F 40/41 PCR Not detected (Not detect); Astrovirus PCR Not detected (Not detect); C.difficile Toxin A/B Gene PCR DETECTED (Not detect); Cryptosporidium by PCR Not detected (Not detect); Cyclospora cayetanensis PCR Not detected (Not detect); E. coli O157 by PCR Not detected (Not detect); Entamoeba histolytica PCR Not detected (Not detect); Enteroaggregative E.coli(EAEC) Not detected (Not detect); Enteropathogenic E.coli(EPEC) Not detected (Not detect); Enterotoxigenic E.coli (ETEC) Not detected (Not detect); Giardia lamblia PCR Not detected (Not detect); Norovirus GI/GII PCR Not detected (Not detect); Plesiomonas shigelloides PCR Not detected (Not detect); Rotavirus A PCR Not detected (Not detect); Salmonella PCR Not detected (Not detect); Sapovirus PCR Not detected (Not detect); Shig/EnteroinvasiveE coli EIEC Not detected (Not detect); Shigalike tox-prod E coli STEC Not detected (Not detect); Vibrio PCR Not detected (Not detect); Vibrio cholerae PCR Not detected (Not detect); Yersinia enterocolitica PCR Not detected (Not detect)
[2019-06-01] MEDS ORDERED: Warfarin perPT PO PRN (18:00)
[2019-06-01] MEDS: MetroNIDAZOLE 500 MG/100 ML 500 MG/100 ML BAG IVPB SCH (18:17)
[2019-06-01] MEDS: cefTRIAXone 2,000 MG in Water for inj. (sterile) 20 ML IVP SCH (21:22)
[2019-06-01] MEDS: Melatonin 3 MG TABLET PO PRN (21:31)
[2019-06-02] MEDS: MetroNIDAZOLE 500 MG/100 ML 500 MG/100 ML BAG IVPB SCH ×4 (00:09→18:31)
[2019-06-02] MEDS: Insulin LISPRO 300 UNITS/3 ML VIAL SQ SCH ×5 (00:14→21:54)
[2019-06-02 05:05] LABS: INR 6.7; Prothrombin Time 76.7 Seconds (9.4-12.1)
[2019-06-02 05:15] LABS: Calcium 8.5 mg/dL (8.6-10.3); Phosphorous 2.6 mg/dL (2.7-4.5)
[2019-06-02] MEDS ORDERED: Potassium Phosphate 44 MEQ in 0.9 % Sodium Chloride 250 ML IVPB ONE (07:21)
[2019-06-02] MEDS ORDERED: *HR* Phytonadione 10 MG/ML AMPUL SQ ONE (07:25)
[2019-06-02] MEDS: Metoprolol 100 MG TABLET PO SCH ×2 (07:48→21:54)
[2019-06-02] MEDS: GuaiFENesin Liq 200 MG/10 ML UDC PO PRN (07:48)
[2019-06-02] MEDS: Furosemide 40 MG TABLET PO SCH ×2 (07:49→16:43)
[2019-06-02 08:15] LABS: Estimated Average Glucose 128 mg/dl
[2019-06-02] MEDS: *HR* HYDROcodone/Acet 5/325 mg TABLET PO PRN ×2 (09:22→16:46)
[2019-06-02] MEDS: Vancomycin Oral Soln 125 MG/2.5 ML UDC PO SCH ×3 (16:31→21:54)
[2019-06-02] MEDS: Silvasorb 44.4 ML TUBE TP SCH (18:38)
[2019-06-02 20:13] LABS: Bilirubin,Urine Small (Negative); Blood,Urine Large (Negative); Clarity,Urine Turbid (Clear); Color,Urine Dark Yellow (Yellow); Glucose,Urine (UA) Normal (Normal); Ketones,Urine Trace mg/dL (Negative); Leukocyte Esterase,Urine Large (Negative); Nitrite,Urine Negative (Negative); Protein,Urine 100 mg/dL (Neg-Trace); Urobilinogen,Urine Normal (Normal)
[2019-06-02 20:16] LABS: Hyaline Casts,Urine None Seen per lpf (None-Few); Squamous Epithelial Cell,Urine Many per lpf (None-Few); WBC,Urine 30-50 per hpf (0-3)
[2019-06-02 20:30] LABS: Bacteria,Urine Few per hpf (None-Few); RBC,Urine TNTC per hpf (0-3); Yeast,Urine Moderate per hpf (None Seen)
[2019-06-02] MEDS ORDERED: *HR* LORazepam Oral Conc 2 MG/ML SL PRN (21:11)
[2019-06-02] MEDS: cefTRIAXone 2,000 MG in Water for inj. (sterile) 20 ML IVP SCH (21:54)
[2019-06-03] MEDS: MetroNIDAZOLE 500 MG/100 ML 500 MG/100 ML BAG IVPB SCH ×4 (00:51→17:30)
[2019-06-03] MEDS: *HR* HYDROcodone/Acet 5/325 mg TABLET PO PRN (00:51)
[2019-06-03] MEDS: GuaiFENesin Liq 200 MG/10 ML UDC PO PRN ×2 (01:24→17:25)
[2019-06-03 05:48] LABS: Basophils % 0.1 %; Eosinophils % 0.3 %; Hematocrit 32.3 % (37.5-50.1); Hemoglobin 10.5 g/dL (12.9-16.9); Immature Granulocytes % 0.9 % (0-4); Lymphocytes # 1.1 K/mcL (0.6-4.6); Lymphocytes % 9.1 %; Mean Corpuscular HGB Conc 32.5 g/dL (31.6-35.5); Mean Corpuscular Hemoglobin 31.9 pg (28.0-33.3); Mean Corpuscular Volume 98.2 fL (83.0-100.0); Mean Platelet Volume 9.8 fL (9.4-12.4); Monocytes # 0.8 K/mcL (0.0-1.3); Monocytes % 6.8 %; Neutrophils # 9.5 K/mcL (1.6-8.9); Platelet Count 220 K/mcL (140-400); Red Blood Count 3.29 M/mcL (4.19-5.50); Red Cell Distribution Width 16.2 % (11.5-14.5); Segmented Neutrophils % 82.8 %; White Blood Count 11.5 K/mcL (4.3-11.1)
[2019-06-03 06:08] LABS: Calcium 8.5 mg/dL (8.6-10.3); Magnesium 1.9 mg/dL (1.6-2.6); Phosphorous 4.2 mg/dL (2.7-4.5); Potassium 3.6 mEq/L (3.5-5.1)
[2019-06-03 06:35] LABS: INR 5.3; Prothrombin Time 60.4 Seconds (9.4-12.1)
[2019-06-03] MEDS: Insulin LISPRO 300 UNITS/3 ML VIAL SQ SCH ×4 (08:37→21:05)
[2019-06-03] MEDS: Metoprolol 100 MG TABLET PO SCH ×2 (08:38→21:03)
[2019-06-03] MEDS: Furosemide 40 MG TABLET PO SCH ×2 (08:38→16:26)
[2019-06-03] MEDS: Silvasorb 44.4 ML TUBE TP SCH (08:39)
[2019-06-03] MEDS: Vancomycin Oral Soln 125 MG/2.5 ML UDC PO SCH (08:42)
[2019-06-03 09:00] LABS: Hepatitis B Surface Antibody < 3.10 mIU/mL
[2019-06-03 09:12] LABS: Hepatitis B Surface Antigen Nonreactive (Nonreactive)
[2019-06-03] MEDS: predniSONE 20 MG TABLET PO SCH (11:33)
[2019-06-03] MEDS: Melatonin 3 MG TABLET PO PRN (21:04)
[2019-06-03] MEDS: cefTRIAXone 2,000 MG in Water for inj. (sterile) 20 ML IVP SCH (21:04)
[2019-06-04] MEDS ORDERED: Haloperidol Lactate 5 MG/ML VIAL IVP ONE (00:23)
[2019-06-04] MEDS: MetroNIDAZOLE 500 MG/100 ML 500 MG/100 ML BAG IVPB SCH ×2 (00:47→07:02)
[2019-06-04] MEDS ORDERED: *HR* Promethazine 25 MG/ML VIAL IVP ONE (00:51)
[2019-06-04 04:17] LABS: Basophils % 0.2 %; Eosinophils % 0.2 %; Hematocrit 29.1 % (37.5-50.1); Hemoglobin 9.7 g/dL (12.9-16.9); Immature Granulocytes % 0.4 % (0-4); Lymphocytes # 1.1 K/mcL (0.6-4.6); Lymphocytes % 8.7 %; Mean Corpuscular HGB Conc 33.3 g/dL (31.6-35.5); Mean Corpuscular Hemoglobin 31.6 pg (28.0-33.3); Mean Corpuscular Volume 94.8 fL (83.0-100.0); Mean Platelet Volume 10.1 fL (9.4-12.4); Monocytes # 1.1 K/mcL (0.0-1.3); Monocytes % 8.1 %; Neutrophils # 10.8 K/mcL (1.6-8.9); Platelet Count 222 K/mcL (140-400); Red Blood Count 3.07 M/mcL (4.19-5.50); Red Cell Distribution Width 15.9 % (11.5-14.5); Segmented Neutrophils % 82.4 %; White Blood Count 13.1 K/mcL (4.3-11.1)
[2019-06-04 04:25] LABS: INR 3.3
[2019-06-04 04:36] LABS: Calcium 8.7 mg/dL (8.6-10.3); Magnesium 1.9 mg/dL (1.6-2.6); Phosphorous 4.4 mg/dL (2.7-4.5); Potassium 3.8 mEq/L (3.5-5.1)
[2019-06-04] MEDS ORDERED: *HR* LORazepam Oral Conc 2 MG/ML SL ONE (09:00)
[2019-06-04] MEDS: Furosemide 40 MG TABLET PO SCH ×3 (09:02→22:45)
[2019-06-04] MEDS: predniSONE 20 MG TABLET PO SCH (09:02)
[2019-06-04] MEDS: Metoprolol 100 MG TABLET PO SCH ×2 (09:02→22:45)
[2019-06-04] MEDS: Insulin LISPRO 300 UNITS/3 ML VIAL SQ SCH ×4 (09:02→22:45)
[2019-06-04] MEDS: Silvasorb 44.4 ML TUBE TP SCH (09:07)
[2019-06-04] MEDS ORDERED: *HR* LORazepam 2 MG/ML VIAL IVP PRN (09:54)
[2019-06-04] MEDS ORDERED: Cefepime HCl 1,000 MG in Water for inj. (sterile) 10 ML IVP SCH ×2 (10:14→11:00)
[2019-06-04] MEDS ORDERED: 0.9 % Sodium Chloride 250 ML IVC PRN (11:02)
[2019-06-04] MEDS ORDERED: 0.9 % Sodium Chloride 1,000 ML PRIME SCH (11:15)
[2019-06-04 13:37] LABS: Total Volume 24 Hour,Urine 0.2 Liters (0.80-1.80)
[2019-06-04 13:55] LABS: Protein/Creatinine Ratio,Urine 1.23 mg/mg (0.00-0.20); Sodium, Urine 28.4 mEq/L
[2019-06-04 17:04] LABS: Adenovirus Not Detected (Not Detect); Bordetella Pertussis Not Detected (Not Detect); Chlamydophila pneumoniae Not Detected (Not Detect); Coronavirus 229E Not Detected (Not Detect); Coronavirus HKU1 Not Detected (Not Detect); Coronavirus NL63 Not Detected (Not Detect); Coronavirus OC43 Not Detected (Not Detect); Human Metapneumovirus Not Detected (Not Detect); Human Rhinovirus/Enterovirus Not Detected (Not Detect); Influenza B Not Detected (Not Detect); Mycoplasma pneumoniae Not Detected (Not Detect); Parainfluenza Virus 1 Not Detected (Not Detect); Parainfluenza Virus 2 Not Detected (Not Detect); Parainfluenza Virus 3 Not Detected (Not Detect); Parainfluenza Virus 4 Not Detected (Not Detect); Respiratory Syncytial Virus Not Detected (Not Detect)
[2019-06-04 17:11] LABS: Influenza A Subtype 2009 H1 DETECTED (Not Detect)
[2019-06-04] MEDS: Vancomycin Oral Soln 125 MG/2.5 ML UDC PO SCH ×2 (17:47→22:45)
[2019-06-04] MEDS: DAPTOMYCIN IVPB SCH (17:47)
[2019-06-04] MEDS: Piperacillin/Tazobactam 3.375 GM in 0.9 % Sodium Chloride Mini Bag 100 ML IVPB SCH (17:47)
[2019-06-04] MEDS: SODIUM CHLORIDE 0.9% IVPB SCH (17:47)
[2019-06-04 23:40] LABS: ABG Base Excess 2 mEq/L (-2 to 3); ABG HCO3 27 mEq/L (21-27); ABG Oxygen Saturation 95 % (95-98); ABG PCO2 45 mmHg (35-45); ABG PH 7.39 pH Units (7.32-7.45); ABG PO2 77 mmHg (85-104); ABG TCO2 29 mEq/L (20-26)
[2019-06-05 05:17] LABS: Basophils % 0.1 %; Eosinophils % 0.1 %; Hemoglobin 10.3 g/dL (12.9-16.9); Immature Granulocytes % 0.8 % (0-4); Lymphocytes # 1.2 K/mcL (0.6-4.6); Lymphocytes % 9.4 %; Mean Corpuscular HGB Conc 32.2 g/dL (31.6-35.5); Mean Corpuscular Hemoglobin 31.5 pg (28.0-33.3); Mean Corpuscular Volume 97.9 fL (83.0-100.0); Mean Platelet Volume 9.7 fL (9.4-12.4); Monocytes # 0.9 K/mcL (0.0-1.3); Monocytes % 7.2 %; Neutrophils # 10.8 K/mcL (1.6-8.9); Platelet Count 218 K/mcL (140-400); Red Blood Count 3.27 M/mcL (4.19-5.50); Red Cell Distribution Width 16.1 % (11.5-14.5); Segmented Neutrophils % 82.4 %; White Blood Count 13.1 K/mcL (4.3-11.1)
[2019-06-05 05:24] LABS: INR 2.2; Prothrombin Time 25.3 Seconds (9.4-12.1)
[2019-06-05 05:38] LABS: Calcium 8.5 mg/dL (8.6-10.3); Magnesium 1.8 mg/dL (1.6-2.6); Phosphorous 3.8 mg/dL (2.7-4.5); Potassium 3.4 mEq/L (3.5-5.1)
[2019-06-05] MEDS: Piperacillin/Tazobactam 3.375 GM in 0.9 % Sodium Chloride Mini Bag 100 ML IVPB SCH ×2 (05:53→16:56)
[2019-06-05] MEDS: Silvasorb 44.4 ML TUBE TP SCH (06:45)
[2019-06-05 07:29] LABS: Bilirubin,Urine Small (Negative); Blood,Urine Large (Negative); Clarity,Urine Cloudy (Clear); Color,Urine Dark Yellow (Yellow); Glucose,Urine (UA) Normal (Normal); Ketones,Urine Trace mg/dL (Negative); Leukocyte Esterase,Urine Trace (Negative); Nitrite,Urine Negative (Negative); Protein,Urine 30 mg/dL (Neg-Trace); Specific Gravity,Urine 1.019 (1.010-1.025); Urobilinogen,Urine Normal (Normal)
[2019-06-05 07:31] LABS: Bacteria,Urine None Seen per hpf (None-Few); Hyaline Casts,Urine None Seen per lpf (None-Few); Squamous Epithelial Cell,Urine Many per lpf (None-Few); WBC,Urine 0-3 per hpf (0-3)
[2019-06-05 08:05] LABS: RBC,Urine 30-50 per hpf (0-3)
[2019-06-05 08:06] LABS: Transitional Epi Cells,Urine Few per hpf (None-Few)
[2019-06-05] MEDS ORDERED: 0.9 % Sodium Chloride 250 ML IVC PRN (09:59)
[2019-06-05] MEDS: Metoprolol 100 MG TABLET PO SCH ×2 (10:04→20:48)
[2019-06-05] MEDS: Vancomycin Oral Soln 125 MG/2.5 ML UDC PO SCH ×4 (10:04→20:15)
[2019-06-05] MEDS: Insulin LISPRO 300 UNITS/3 ML VIAL SQ SCH ×3 (11:27→20:47)
[2019-06-05] MEDS ORDERED: Dexamethasone 4 MG/ML VIAL ONE (11:59)
[2019-06-05] MEDS ORDERED: Lidocaine -MPF 2% 2 ML VIAL ONE (11:59)
[2019-06-05] MEDS ORDERED: Ondansetron 4 MG/2 ML VIAL ONE (11:59)
[2019-06-05] MEDS ORDERED: Furosemide 40 MG TABLET PO SCH (12:00)
[2019-06-05] MEDS ORDERED: *HR* Midazolam HCl 2 MG/2 ML VIAL ONE (12:04)
[2019-06-05] MEDS ORDERED: *HR* FentaNYL (PF) 100 MCG/2 ML VIAL ONE (12:04)
[2019-06-05] MEDS ORDERED: Piperacillin/Tazobactam 3.375 GM in 0.9 % Sodium Chloride Mini Bag 100 ML IVPB SCH (14:00)
[2019-06-05] MEDS: Melatonin 3 MG TABLET PO PRN (20:13)
[2019-06-05] MEDS: *HR* HYDROcodone/Acet 5/325 mg TABLET PO PRN (20:13)
[2019-06-05] MEDS ORDERED: Saline Nasal Spray 44 ML BOTTLE NS PRN (21:42)
[2019-06-06] MEDS: Piperacillin/Tazobactam 3.375 GM in 0.9 % Sodium Chloride Mini Bag 100 ML IVPB SCH ×4 (00:26→23:50)
[2019-06-06 04:45] LABS: Basophils % 0.1 %; Eosinophils # 0.1 K/mcL (0.0-0.6); Eosinophils % 0.6 %; Hematocrit 29.2 % (37.5-50.1); Hemoglobin 9.4 g/dL (12.9-16.9); Immature Granulocytes % 0.6 % (0-4); Mean Corpuscular HGB Conc 32.2 g/dL (31.6-35.5); Mean Corpuscular Hemoglobin 31.8 pg (28.0-33.3); Mean Corpuscular Volume 98.6 fL (83.0-100.0); Mean Platelet Volume 9.6 fL (9.4-12.4); Monocytes # 0.9 K/mcL (0.0-1.3); Monocytes % 9.5 %; Neutrophils # 7.8 K/mcL (1.6-8.9); Platelet Count 179 K/mcL (140-400); Red Blood Count 2.96 M/mcL (4.19-5.50); Red Cell Distribution Width 16.3 % (11.5-14.5); Segmented Neutrophils % 79.2 %; White Blood Count 9.8 K/mcL (4.3-11.1)
[2019-06-06 04:49] LABS: INR 2.1; Prothrombin Time 24.2 Seconds (9.4-12.1)
[2019-06-06 05:04] LABS: Calcium 8.4 mg/dL (8.6-10.3); Magnesium 1.8 mg/dL (1.6-2.6); Phosphorous 2.6 mg/dL (2.7-4.5); Potassium 3.4 mEq/L (3.5-5.1)
[2019-06-06] MEDS: Silvasorb 44.4 ML TUBE TP SCH (06:28)
[2019-06-06] MEDS ORDERED: 0.9 % Sodium Chloride 250 ML IVC PRN (07:22)
[2019-06-06] MEDS: Insulin LISPRO 300 UNITS/3 ML VIAL SQ SCH ×4 (08:05→20:57)
[2019-06-06] MEDS: *HR* HYDROcodone/Acet 5/325 mg TABLET PO PRN (08:11)
[2019-06-06] MEDS: Vancomycin Oral Soln 125 MG/2.5 ML UDC PO SCH ×4 (08:21→20:57)
[2019-06-06] MEDS: Metoprolol 100 MG TABLET PO SCH ×2 (11:34→20:57)
[2019-06-06] MEDS: DAPTOMYCIN IVPB SCH (14:03)
[2019-06-06] MEDS: SODIUM CHLORIDE 0.9% IVPB SCH (14:03)
[2019-06-07 03:35] LABS: Basophils % 0.1 %; Eosinophils # 0.1 K/mcL (0.0-0.6); Eosinophils % 0.8 %; Hematocrit 30.7 % (37.5-50.1); Hemoglobin 9.5 g/dL (12.9-16.9); Immature Granulocytes % 0.9 % (0-4); Lymphocytes # 0.8 K/mcL (0.6-4.6); Lymphocytes % 9.9 %; Mean Corpuscular HGB Conc 30.9 g/dL (31.6-35.5); Mean Corpuscular Hemoglobin 31.1 pg (28.0-33.3); Mean Corpuscular Volume 100.7 fL (83.0-100.0); Mean Platelet Volume 9.8 fL (9.4-12.4); Monocytes # 0.8 K/mcL (0.0-1.3); Monocytes % 10.4 %; Neutrophils # 5.9 K/mcL (1.6-8.9); Platelet Count 159 K/mcL (140-400); Red Blood Count 3.05 M/mcL (4.19-5.50); Red Cell Distribution Width 16.1 % (11.5-14.5); Segmented Neutrophils % 77.9 %; White Blood Count 7.6 K/mcL (4.3-11.1)
[2019-06-07 04:01] LABS: Calcium 8.3 mg/dL (8.6-10.3); Magnesium 1.8 mg/dL (1.6-2.6); Phosphorous 2.2 mg/dL (2.7-4.5); Potassium 3.5 mEq/L (3.5-5.1)
[2019-06-07] MEDS: *HR* HYDROcodone/Acet 5/325 mg TABLET PO PRN ×2 (04:50→19:57)
[2019-06-07] MEDS: Insulin LISPRO 300 UNITS/3 ML VIAL SQ SCH ×4 (09:26→19:59)
[2019-06-07] MEDS: Piperacillin/Tazobactam 3.375 GM in 0.9 % Sodium Chloride Mini Bag 100 ML IVPB SCH ×2 (09:32→16:19)
[2019-06-07] MEDS: Vancomycin Oral Soln 125 MG/2.5 ML UDC PO SCH ×4 (09:33→19:57)
[2019-06-07] MEDS: Silvasorb 44.4 ML TUBE TP SCH (09:34)
[2019-06-07] MEDS: Metoprolol 100 MG TABLET PO SCH ×2 (09:40→19:57)
[2019-06-07] MEDS: predniSONE 20 MG TABLET PO SCH (12:46)
[2019-06-07] MEDS ORDERED: Warfarin perPT PO PRN (18:00)
[2019-06-07] MEDS ORDERED: *HR* Warfarin 4 MG TABLET PO ONE (18:00)
[2019-06-07] MEDS: Melatonin 3 MG TABLET PO PRN (19:57)
[2019-06-08] MEDS: Piperacillin/Tazobactam 3.375 GM in 0.9 % Sodium Chloride Mini Bag 100 ML IVPB SCH ×3 (00:23→16:06)
[2019-06-08] MEDS: *HR* HYDROcodone/Acet 5/325 mg TABLET PO PRN ×2 (05:08→20:39)
[2019-06-08 07:10] LABS: Hematocrit 30.6 % (37.5-50.1); Hemoglobin 9.5 g/dL (12.9-16.9); Lymphocytes # 0.9 K/mcL (0.6-4.6); Lymphocytes % 10.3 %; Mean Corpuscular Hemoglobin 31.9 pg (28.0-33.3); Mean Corpuscular Volume 102.7 fL (83.0-100.0); Mean Platelet Volume 10.2 fL (9.4-12.4); Monocytes # 0.6 K/mcL (0.0-1.3); Monocytes % 7.2 %; Neutrophils # 6.8 K/mcL (1.6-8.9); Platelet Count 142 K/mcL (140-400); Red Blood Count 2.98 M/mcL (4.19-5.50); Segmented Neutrophils % 81.5 %; White Blood Count 8.4 K/mcL (4.3-11.1)
[2019-06-08 07:14] LABS: INR 1.9; Prothrombin Time 21.1 Seconds (9.4-12.1)
[2019-06-08 07:30] LABS: Calcium 8.7 mg/dL (8.6-10.3); Magnesium 1.9 mg/dL (1.6-2.6); Phosphorous 2.5 mg/dL (2.7-4.5); Potassium 3.4 mEq/L (3.5-5.1)
[2019-06-08] MEDS: Insulin LISPRO 300 UNITS/3 ML VIAL SQ SCH ×4 (08:43→20:40)
[2019-06-08] MEDS: predniSONE 20 MG TABLET PO SCH (09:46)
[2019-06-08] MEDS: Metoprolol 100 MG TABLET PO SCH ×2 (09:47→20:40)
[2019-06-08] MEDS: Vancomycin Oral Soln 125 MG/2.5 ML UDC PO SCH ×4 (09:47→20:40)
[2019-06-08] MEDS: Silvasorb 44.4 ML TUBE TP SCH (09:48)
[2019-06-08] MEDS ORDERED: Potassium Chloride Elixir 20 MEQ/15 ML UDC PO ONE (12:10)
[2019-06-08] MEDS: DAPTOMYCIN IVPB SCH (16:05)
[2019-06-08] MEDS: SODIUM CHLORIDE 0.9% IVPB SCH (16:05)
[2019-06-08] MEDS ORDERED: *HR* Warfarin 4 MG TABLET PO ONE (18:00)
[2019-06-09] MEDS: Piperacillin/Tazobactam 3.375 GM in 0.9 % Sodium Chloride Mini Bag 100 ML IVPB SCH ×3 (00:17→17:43)
[2019-06-09 06:45] LABS: Basophils % 0.1 %; Eosinophils % 0.1 %; Hematocrit 32.5 % (37.5-50.1); Hemoglobin 10.4 g/dL (12.9-16.9); Immature Granulocytes % 0.9 % (0-4); Lymphocytes # 1.8 K/mcL (0.6-4.6); Mean Platelet Volume 9.7 fL (9.4-12.4); Monocytes # 1.2 K/mcL (0.0-1.3); Monocytes % 8.1 %; Neutrophils # 11.8 K/mcL (1.6-8.9); Platelet Count 217 K/mcL (140-400); Red Blood Count 3.25 M/mcL (4.19-5.50); Red Cell Distribution Width 16.5 % (11.5-14.5); Segmented Neutrophils % 78.8 %
[2019-06-09 07:09] LABS: Magnesium 1.9 mg/dL (1.6-2.6); Phosphorous 3.1 mg/dL (2.7-4.5); Potassium 3.6 mEq/L (3.5-5.1)
[2019-06-09 07:25] LABS: INR 2.5; Prothrombin Time 28.3 Seconds (9.4-12.1)
[2019-06-09] MEDS ORDERED: *HR* Heparin 10,000 UNIT/10 ML VIAL IV PRN ×2 (07:59)
[2019-06-09] MEDS ORDERED: 0.9 % Sodium Chloride 250 ML IVC PRN (07:59)
[2019-06-09] MEDS: Vancomycin Oral Soln 125 MG/2.5 ML UDC PO SCH ×4 (08:46→19:49)
[2019-06-09] MEDS: predniSONE 20 MG TABLET PO SCH (08:46)
[2019-06-09] MEDS: *HR* HYDROcodone/Acet 5/325 mg TABLET PO PRN ×2 (08:52→19:49)
[2019-06-09] MEDS: Insulin LISPRO 300 UNITS/3 ML VIAL SQ SCH ×4 (08:54→19:50)
[2019-06-09] MEDS ORDERED: *HR* Phytonadione 10 MG/ML AMPUL SQ ONE (09:04)
[2019-06-09] MEDS: Metoprolol 100 MG TABLET PO SCH ×2 (13:30→19:49)
[2019-06-09] MEDS ORDERED: *HR* Phytonadione 5 MG TABLET PO ONE (15:21)
[2019-06-09] MEDS ORDERED: DAPTOMYCIN IVPB ONE (16:00)
[2019-06-09] MEDS ORDERED: SODIUM CHLORIDE 0.9% IVPB ONE (16:00)
[2019-06-09 18:36] LABS: INR 2.8
[2019-06-10] MEDS: Piperacillin/Tazobactam 3.375 GM in 0.9 % Sodium Chloride Mini Bag 100 ML IVPB SCH ×3 (00:33→18:02)
[2019-06-10 04:56] LABS: Basophils % 0.2 %; Eosinophils % 0.2 %; Hematocrit 32.5 % (37.5-50.1); Hemoglobin 10.1 g/dL (12.9-16.9); Lymphocytes # 1.5 K/mcL (0.6-4.6); Lymphocytes % 11.5 %; Mean Corpuscular HGB Conc 31.1 g/dL (31.6-35.5); Mean Corpuscular Hemoglobin 32.3 pg (28.0-33.3); Mean Corpuscular Volume 103.8 fL (83.0-100.0); Mean Platelet Volume 9.6 fL (9.4-12.4); Monocytes # 1.2 K/mcL (0.0-1.3); Monocytes % 9.7 %; Platelet Count 168 K/mcL (140-400); Red Blood Count 3.13 M/mcL (4.19-5.50); Red Cell Distribution Width 16.8 % (11.5-14.5); Segmented Neutrophils % 77.4 %; White Blood Count 12.8 K/mcL (4.3-11.1)
[2019-06-10 04:59] LABS: INR 2.2; Prothrombin Time 25.5 Seconds (9.4-12.1)
[2019-06-10 05:22] LABS: Calcium 8.8 mg/dL (8.6-10.3); Magnesium 1.9 mg/dL (1.6-2.6); Phosphorous 2.1 mg/dL (2.7-4.5); Potassium 3.3 mEq/L (3.5-5.1)
[2019-06-10] MEDS ORDERED: Haloperidol Lactate 5 MG/ML VIAL IVP ONE (05:23)
[2019-06-10] MEDS ORDERED: *HR* Promethazine 25 MG/ML VIAL IVP ONE (05:23)
[2019-06-10] MEDS: *HR* HYDROcodone/Acet 5/325 mg TABLET PO PRN ×2 (09:01→21:51)
[2019-06-10] MEDS: predniSONE 20 MG TABLET PO SCH (09:03)
[2019-06-10] MEDS: Metoprolol 100 MG TABLET PO SCH ×2 (09:03→21:33)
[2019-06-10] MEDS: Vancomycin Oral Soln 125 MG/2.5 ML UDC PO SCH ×4 (09:05→21:33)
[2019-06-10] MEDS: Silvasorb 44.4 ML TUBE TP SCH (09:08)
[2019-06-10] MEDS: Insulin LISPRO 300 UNITS/3 ML VIAL SQ SCH ×4 (09:08→21:25)
[2019-06-10 14:40] LABS: INR 1.8; Prothrombin Time 20.7 Seconds (9.4-12.1)
[2019-06-10] MEDS ORDERED: traZODone 50 MG TABLET PO SCH (21:00)
[2019-06-11 02:28] LABS: Hematocrit 25.4 % (37.5-50.1); Hemoglobin 8.1 g/dL (12.9-16.9); Mean Corpuscular HGB Conc 31.9 g/dL (31.6-35.5); Mean Corpuscular Hemoglobin 32.8 pg (28.0-33.3); Mean Corpuscular Volume 102.8 fL (83.0-100.0); Platelet Count 143 K/mcL (140-400); Red Blood Count 2.47 M/mcL (4.19-5.50); Red Cell Distribution Width 16.3 % (11.5-14.5); White Blood Count 13.1 K/mcL (4.3-11.1)
[2019-06-11 02:35] LABS: INR 1.6; Prothrombin Time 18.2 Seconds (9.4-12.1)
[2019-06-11 02:49] LABS: Calcium 8.3 mg/dL (8.6-10.3); Potassium 4.1 mEq/L (3.5-5.1)
[2019-06-11] MEDS: Piperacillin/Tazobactam 3.375 GM in 0.9 % Sodium Chloride Mini Bag 100 ML IVPB SCH ×2 (06:12→18:39)
[2019-06-11] MEDS: Insulin LISPRO 300 UNITS/3 ML VIAL SQ SCH ×4 (08:47→20:59)
[2019-06-11] MEDS: Vancomycin Oral Soln 125 MG/2.5 ML UDC PO SCH ×4 (08:47→21:00)
[2019-06-11] MEDS: Metoprolol 100 MG TABLET PO SCH ×2 (08:47→20:59)
[2019-06-11] MEDS: Silvasorb 44.4 ML TUBE TP SCH ×2 (08:47→18:06)
[2019-06-11] MEDS ORDERED: 0.9 % Sodium Chloride 250 ML IVC PRN ×3 (08:59→18:44)
[2019-06-11] MEDS ORDERED: *HR* Heparin 10,000 UNIT/10 ML VIAL IV PRN ×2 (08:59→18:44)
[2019-06-11] MEDS ORDERED: predniSONE 20 MG TABLET PO SCH (09:00)
[2019-06-11 09:38] LABS: Hematocrit 27.3 % (37.5-50.1); Hemoglobin 8.9 g/dL (12.9-16.9)
[2019-06-11] MEDS ORDERED: DAPTOMYCIN IVPB SCH ×2 (16:00)
[2019-06-11] MEDS ORDERED: SODIUM CHLORIDE 0.9% IVPB SCH ×2 (16:00)
[2019-06-11] MEDS ORDERED: Lidocaine 1% 20 ML MDV ONE (16:23)
[2019-06-11] MEDS ORDERED: *HR* Propofol 200 MG/20 ML VIAL IVP ONE (16:36)
[2019-06-11] MEDS ORDERED: Bupivacaine/Clonidine Syringe 20 ML, Syringe LUER-LOK 1 EACH TP ONE ×2 (17:30→18:44)
[2019-06-11] MEDS ORDERED: *HR* Warfarin 4 MG TABLET PO ONE ×2 (18:00→18:44)
[2019-06-11] MEDS ORDERED: Warfarin perPT PO PRN ×2 (18:00→18:44)
[2019-06-11] MEDS ORDERED: *HR* PHENYLEPHRINE 1,000 MCG/10 ML SYRINGE IVP ONE (18:05)
[2019-06-11] MEDS ORDERED: Dextrose Gel 15 GM/37.5 ML TUBE PO PRN ×2 (18:44)
[2019-06-11] MEDS ORDERED: Nystatin Cream 15 GM TUBE TP PRN (18:44)
[2019-06-11] MEDS ORDERED: Saline Nasal Spray 44 ML BOTTLE NS PRN (18:44)
[2019-06-11] MEDS ORDERED: GuaiFENesin Liq 200 MG/10 ML UDC PO PRN (18:44)
[2019-06-11] MEDS ORDERED: D5% in Water 1,000 ML IVC PRN (18:44)
[2019-06-11] MEDS ORDERED: *HR* Dextrose 50 % in Water (Syg) 50 ML SYRINGE IVP PRN (18:44)
[2019-06-11] MEDS ORDERED: 0.9 % Sodium Chloride 1,000 ML PRIME SCH (18:44)
[2019-06-11] MEDS ORDERED: Naloxone 0.4 MG/ML INJ IVP PRN (18:44)
[2019-06-11] MEDS: *HR* HYDROcodone/Acet 5/325 mg TABLET PO PRN (20:57)
[2019-06-11] MEDS: traZODone 50 MG TABLET PO SCH (20:57)
[2019-06-12] MEDS: Piperacillin/Tazobactam 3.375 GM in 0.9 % Sodium Chloride Mini Bag 100 ML IVPB SCH ×2 (05:36→17:33)
[2019-06-12 06:11] LABS: Calcium 8.2 mg/dL (8.6-10.3); Potassium 4.2 mEq/L (3.5-5.1)
[2019-06-12] MEDS ORDERED: Albumin 25% 25gram/100mL 25 GM/100 ML IV.SOLN IVPB ONE (06:17)
[2019-06-12 06:56] LABS: Basophils % 0.1 %; Eosinophils % 0.1 %; Hematocrit 20.7 % (37.5-50.1); Immature Granulocytes % 1.2 % (0-4); Lymphocytes # 2.1 K/mcL (0.6-4.6); Lymphocytes % 12.8 %; Mean Corpuscular HGB Conc 33.3 g/dL (31.6-35.5); Mean Corpuscular Hemoglobin 32.9 pg (28.0-33.3); Mean Corpuscular Volume 98.6 fL (83.0-100.0); Mean Platelet Volume 10.4 fL (9.4-12.4); Monocytes # 1.7 K/mcL (0.0-1.3); Monocytes % 10.1 %; Neutrophils # 12.6 K/mcL (1.6-8.9); Red Cell Distribution Width 16.5 % (11.5-14.5); Segmented Neutrophils % 75.7 %; White Blood Count 16.6 K/mcL (4.3-11.1)
[2019-06-12 06:59] LABS: Hemoglobin 6.9 g/dL (12.9-16.9); Platelet Count 98 K/mcL (140-400)
[2019-06-12 07:44] LABS: INR 1.6; Prothrombin Time 17.8 Seconds (9.4-12.1)
[2019-06-12] MEDS ORDERED: 0.9 % Sodium Chloride 250 ML ONE ×4 (08:09→22:06)
[2019-06-12] MEDS: Vancomycin Oral Soln 125 MG/2.5 ML UDC PO SCH ×4 (08:16→21:40)
[2019-06-12] MEDS: Insulin LISPRO 300 UNITS/3 ML VIAL SQ SCH ×4 (08:22→21:40)
[2019-06-12] MEDS: Silvasorb 44.4 ML TUBE TP SCH (08:22)
[2019-06-12 08:47] LABS: INR 1.5; Prothrombin Time 16.5 Seconds (9.4-12.1)
[2019-06-12] MEDS ORDERED: predniSONE 20 MG TABLET PO SCH (09:00)
[2019-06-12] MEDS: *HR* HYDROcodone/Acet 5/325 mg TABLET PO PRN ×2 (09:11→21:59)
[2019-06-12] MEDS ORDERED: *HR* Propofol 200 MG/20 ML VIAL IVP ONE ×2 (13:40→14:46)
[2019-06-12] MEDS ORDERED: Lidocaine -MPF 2% 2 ML VIAL ONE (13:42)
[2019-06-12] MEDS ORDERED: *HR* PHENYLEPHRINE 1,000 MCG/10 ML SYRINGE IVP ONE (15:00)
[2019-06-12] MEDS: Pantoprazole 40 MG VIAL IVP SCH (17:33)
[2019-06-12 19:41] LABS: Hematocrit 21.5 % (37.5-50.1); Hemoglobin 6.6 g/dL (12.9-16.9)
[2019-06-12] MEDS ORDERED: 0.9 % Sodium Chloride 250 ML IVC SCH (20:15)
[2019-06-12] MEDS: traZODone 50 MG TABLET PO SCH (21:40)
[2019-06-13 03:07] LABS: Hematocrit 24.2 % (37.5-50.1); Hemoglobin 7.8 g/dL (12.9-16.9)
[2019-06-13 03:35] LABS: Hematocrit 25.6 % (37.5-50.1); Hemoglobin 8.1 g/dL (12.9-16.9); Immature Platelets 4.5 % (1.1-6.1); Mean Corpuscular HGB Conc 31.6 g/dL (31.6-35.5); Mean Corpuscular Hemoglobin 30.9 pg (28.0-33.3); Mean Corpuscular Volume 97.7 fL (83.0-100.0); Mean Platelet Volume 10.2 fL (9.4-12.4); Red Blood Count 2.62 M/mcL (4.19-5.50); Red Cell Distribution Width 18.5 % (11.5-14.5); White Blood Count 12.2 K/mcL (4.3-11.1)
[2019-06-13 03:37] LABS: INR 1.8; Prothrombin Time 20.5 Seconds (9.4-12.1)
[2019-06-13 03:55] LABS: Calcium 8.6 mg/dL (8.6-10.3); Potassium 3.8 mEq/L (3.5-5.1)
[2019-06-13] MEDS: Piperacillin/Tazobactam 3.375 GM in 0.9 % Sodium Chloride Mini Bag 100 ML IVPB SCH ×2 (06:05→17:11)
[2019-06-13] MEDS: Pantoprazole 40 MG VIAL IVP SCH ×2 (06:05→17:10)
[2019-06-13 06:33] LABS: Hematocrit 26.4 % (37.5-50.1); Hemoglobin 8.2 g/dL (12.9-16.9)
[2019-06-13] MEDS ORDERED: 0.9 % Sodium Chloride 250 ML IVC PRN (08:39)
[2019-06-13] MEDS: Insulin LISPRO 300 UNITS/3 ML VIAL SQ SCH ×4 (09:44→22:12)
[2019-06-13] MEDS: Vancomycin Oral Soln 125 MG/2.5 ML UDC PO SCH ×5 (09:45→23:15)
[2019-06-13] MEDS: predniSONE 20 MG TABLET PO SCH (09:45)
[2019-06-13] MEDS: Metoprolol 100 MG TABLET PO SCH (09:45)
[2019-06-13 10:19] LABS: Hematocrit 25.3 % (37.5-50.1)
[2019-06-13 11:16] LABS: VBG HCO3 30 mEq/L (21-27); VBG PCO2 77 mmHg (41-51); VBG PO2 153 mmHg (25-50)
[2019-06-13 12:57] LABS: Albumin 3.2 g/dL (3.5-5.7); Albumin/Globulin Ratio 1.5 (1.1-2.2); Globulin 2.1 g/dL (2.4-3.5); Total Protein 5.3 g/dL (6.4-8.9)
[2019-06-13] MEDS ORDERED: DAPTOMYCIN IVPB SCH (16:00)
[2019-06-13] MEDS ORDERED: SODIUM CHLORIDE 0.9% IVPB SCH (16:00)
[2019-06-13 17:09] LABS: Glucose,Pleural Fluid 115 mg/dL (No Ref Range); LDH,Pleural Fluid 71 Units/L (No Ref Range); Total Protein,Pleural Fluid < 3.0 g/dL
[2019-06-13] MEDS: SODIUM CHLORIDE 0.9% IVPB SCH (17:10)
[2019-06-13] MEDS: DAPTOMYCIN IVPB SCH (17:10)
[2019-06-13 17:44] LABS: Hematocrit 24.3 % (37.5-50.1); Hemoglobin 7.9 g/dL (12.9-16.9)
[2019-06-13] MEDS ORDERED: Albumin 25% 12.5gm/50mL 12.5 GM/50 ML IV.SOLN IVPB ONE (17:50)
[2019-06-13 18:04] LABS: VBG HCO3 32 mEq/L (21-27); VBG PCO2 71 mmHg (41-51); VBG PH 7.27 pH Units (7.32-7.42); VBG PO2 161 mmHg (25-50)
[2019-06-13 18:30] LABS: Folate 13.6 ng/mL (3.0-16.0)
[2019-06-13 20:02] LABS: RBC,Pleural Fluid < 0.002 M/mcL
[2019-06-13 20:11] LABS: Appearance of Pleural Fl Clear (Clear)
[2019-06-13 20:43] LABS: BUN/Creatinine Ratio 8 (6-26); Blood Urea Nitrogen 21 mg/dL (8-23); Carbon Dioxide 32 mEq/L (23-29); Chloride 99 mEq/L (98-107); Glucose 128 mg/dL (70-105); Magnesium 1.6 mg/dL (1.6-2.6); Osmolality,Calculated 291 (280-300); Potassium 3.6 mEq/L (3.5-5.1); Sodium 138 mEq/L (136-145); eGFR For African Americans 31 (> 60); eGFR For Non-African Americans 25 (> 60)
[2019-06-13 20:46] LABS: Basophils,Pleural Fluid 0 %; Eosinophils,Pleural Fluid 0 %
[2019-06-13 22:08] LABS: Hematocrit 23.9 % (37.5-50.1); Hemoglobin 7.7 g/dL (12.9-16.9)
[2019-06-13] MEDS: Silvasorb 44.4 ML TUBE TP SCH (22:09)
[2019-06-13] MEDS: *HR* HYDROcodone/Acet 5/325 mg TABLET PO PRN (22:18)
[2019-06-13] MEDS: traZODone 50 MG TABLET PO SCH (22:19)
[2019-06-14] MEDS: Nystatin SUSP 5 ML UD.LIQ PO SCH ×5 (00:58→22:02)
[2019-06-14] MEDS: Acetaminophen 325 MG TABLET PO PRN (03:45)
[2019-06-14] MEDS: Silvasorb 44.4 ML TUBE TP SCH (04:00)
[2019-06-14 04:08] LABS: Hematocrit 23.4 % (37.5-50.1); Hemoglobin 7.2 g/dL (12.9-16.9); Mean Corpuscular HGB Conc 30.8 g/dL (31.6-35.5)
[2019-06-14 04:10] LABS: Eosinophils # 0.1 K/mcL (0.0-0.6); Eosinophils % 0.7 %; Immature Granulocytes % 0.7 % (0-4); Immature Platelets 2.6 % (1.1-6.1); Lymphocytes # 1.1 K/mcL (0.6-4.6); Lymphocytes % 10.4 %; Mean Corpuscular Volume 100.9 fL (83.0-100.0); Mean Platelet Volume 10.2 fL (9.4-12.4); Monocytes % 9.5 %; Red Blood Count 2.32 M/mcL (4.19-5.50); Segmented Neutrophils % 78.7 %; White Blood Count 10.1 K/mcL (4.3-11.1)
[2019-06-14 04:13] LABS: Platelet Count 91 K/mcL (140-400)
[2019-06-14 04:18] LABS: Mean Platelet Volume 9.6 fL (9.4-12.4)
[2019-06-14 04:26] LABS: Calcium 8.1 mg/dL (8.6-10.3); Potassium 3.6 mEq/L (3.5-5.1)
[2019-06-14] MEDS ORDERED: Magnesium Oxide 400 MG TABLET PO ONE (04:52)
[2019-06-14] MEDS: Piperacillin/Tazobactam 3.375 GM in 0.9 % Sodium Chloride Mini Bag 100 ML IVPB SCH ×2 (05:37→17:03)
[2019-06-14] MEDS: Pantoprazole 40 MG VIAL IVP SCH ×2 (05:37→17:03)
[2019-06-14] MEDS: predniSONE 20 MG TABLET PO SCH (09:19)
[2019-06-14] MEDS: Insulin LISPRO 300 UNITS/3 ML VIAL SQ SCH ×4 (09:22→22:06)
[2019-06-14] MEDS: Vancomycin Oral Soln 125 MG/2.5 ML UDC PO SCH ×4 (09:22→22:06)
[2019-06-14 10:36] LABS: Prothrombin Time 23.3 Seconds (9.4-12.1)
[2019-06-14 14:59] LABS: VBG HCO3 30 mEq/L (21-27); VBG PCO2 68 mmHg (41-51); VBG PH 7.26 pH Units (7.32-7.42); VBG PO2 220 mmHg (25-50)
[2019-06-14] MEDS: traZODone 50 MG TABLET PO SCH (22:01)
[2019-06-14] MEDS: *HR* HYDROcodone/Acet 5/325 mg TABLET PO PRN (23:57)
[2019-06-15 04:12] LABS: Hemoglobin 7.4 g/dL (12.9-16.9); Red Cell Distribution Width 17.8 % (11.5-14.5)
[2019-06-15 04:14] LABS: Hematocrit 21.9 % (37.5-50.1); Immature Platelets 2.8 % (1.1-6.1); Mean Corpuscular HGB Conc 33.8 g/dL (31.6-35.5); Mean Corpuscular Hemoglobin 32.3 pg (28.0-33.3); Mean Corpuscular Volume 95.6 fL (83.0-100.0); Red Blood Count 2.29 M/mcL (4.19-5.50); White Blood Count 8.6 K/mcL (4.3-11.1)
[2019-06-15 04:35] LABS: Calcium 8.2 mg/dL (8.6-10.3); Potassium 3.3 mEq/L (3.5-5.1)
[2019-06-15 04:37] LABS: Magnesium 1.7 mg/dL (1.6-2.6); Phosphorous 2.4 mg/dL (2.7-4.5)
[2019-06-15 05:01] LABS: Folate 16.3 ng/mL (3.0-16.0)
[2019-06-15 05:22] LABS: INR 1.7; Prothrombin Time 19.6 Seconds (9.4-12.1)
[2019-06-15] MEDS: Pantoprazole 40 MG VIAL IVP SCH ×2 (06:19→16:58)
[2019-06-15] MEDS: Piperacillin/Tazobactam 3.375 GM in 0.9 % Sodium Chloride Mini Bag 100 ML IVPB SCH ×2 (06:19→16:58)
[2019-06-15] MEDS: Insulin LISPRO 300 UNITS/3 ML VIAL SQ SCH ×4 (09:29→21:16)
[2019-06-15] MEDS: Vancomycin Oral Soln 125 MG/2.5 ML UDC PO SCH ×5 (09:29→21:16)
[2019-06-15] MEDS: predniSONE 5 MG TABLET PO SCH (09:45)
[2019-06-15] MEDS: Nystatin SUSP 5 ML UD.LIQ PO SCH ×4 (09:45→21:15)
[2019-06-15] MEDS: Silvasorb 44.4 ML TUBE TP SCH (16:59)
[2019-06-15] MEDS: traZODone 50 MG TABLET PO SCH (21:15)
[2019-06-16] MEDS: *HR* HYDROcodone/Acet 5/325 mg TABLET PO PRN ×2 (02:26→21:15)
[2019-06-16 02:53] LABS: Basophils % 0.1 %; Eosinophils # 0.1 K/mcL (0.0-0.6); Eosinophils % 1.4 %; Hematocrit 22.9 % (37.5-50.1); Hemoglobin 7.4 g/dL (12.9-16.9); Immature Granulocytes % 0.6 % (0-4); Immature Platelets 1.6 % (1.1-6.1); Lymphocytes # 1.1 K/mcL (0.6-4.6); Lymphocytes % 13.9 %; Mean Corpuscular HGB Conc 32.3 g/dL (31.6-35.5); Mean Corpuscular Hemoglobin 32.2 pg (28.0-33.3); Mean Corpuscular Volume 99.6 fL (83.0-100.0); Monocytes # 0.8 K/mcL (0.0-1.3); Monocytes % 10.5 %; Neutrophils # 5.8 K/mcL (1.6-8.9); Platelet Count 101 K/mcL (140-400); Segmented Neutrophils % 73.5 %; White Blood Count 7.9 K/mcL (4.3-11.1)
[2019-06-16 03:20] LABS: Calcium 8.2 mg/dL (8.6-10.3); Potassium 3.7 mEq/L (3.5-5.1)
[2019-06-16] MEDS: Pantoprazole 40 MG VIAL IVP SCH ×2 (05:28→17:11)
[2019-06-16] MEDS: Piperacillin/Tazobactam 3.375 GM in 0.9 % Sodium Chloride Mini Bag 100 ML IVPB SCH ×2 (05:29→17:11)
[2019-06-16] MEDS: Vancomycin Oral Soln 125 MG/2.5 ML UDC PO SCH ×4 (07:54→21:16)
[2019-06-16] MEDS: Nystatin SUSP 5 ML UD.LIQ PO SCH (07:54)
[2019-06-16] MEDS: predniSONE 5 MG TABLET PO SCH (07:54)
[2019-06-16] MEDS: Insulin LISPRO 300 UNITS/3 ML VIAL SQ SCH ×4 (08:09→21:02)
[2019-06-16] MEDS ORDERED: 0.9 % Sodium Chloride 250 ML IVC PRN (08:23)
[2019-06-16] MEDS ORDERED: *HR* Heparin 10,000 UNIT/10 ML VIAL IV PRN (08:23)
[2019-06-16 11:12] LABS: INR 1.6; Prothrombin Time 18.4 Seconds (9.4-12.1)
[2019-06-16] MEDS: Magic Mouthwash 10 ML UD Cup PO SCH ×2 (14:08→17:13)
[2019-06-16] MEDS: Silvasorb 44.4 ML TUBE TP SCH (14:31)
[2019-06-16] MEDS: DAPTOMYCIN IVPB SCH (17:19)
[2019-06-16] MEDS: SODIUM CHLORIDE 0.9% IVPB SCH (17:19)
[2019-06-16 19:35] LABS: HSV 1 DNA DETECTED (Not Detect)
[2019-06-16 19:36] LABS: HSV 2 DNA Not Detected (Not Detect)
[2019-06-16] MEDS: traZODone 50 MG TABLET PO SCH (21:15)
[2019-06-16 23:51] LABS: Kappa Qnt Free Light Chains 10.2 mg/dL (0.33-1.94); Lambda Qnt Free Light Chains 5.68 mg/dL (0.57-2.63)
[2019-06-17 03:52] LABS: Basophils % 0.2 %; Eosinophils # 0.2 K/mcL (0.0-0.6); Eosinophils % 2.2 %; Hematocrit 24.7 % (37.5-50.1); Hemoglobin 7.9 g/dL (12.9-16.9); Immature Granulocytes % 0.8 % (0-4); Lymphocytes # 1.1 K/mcL (0.6-4.6); Lymphocytes % 13.2 %; Mean Corpuscular Hemoglobin 31.3 pg (28.0-33.3); Mean Platelet Volume 9.6 fL (9.4-12.4); Monocytes # 1.1 K/mcL (0.0-1.3); Monocytes % 12.8 %; Neutrophils # 5.8 K/mcL (1.6-8.9); Platelet Count 104 K/mcL (140-400); Red Blood Count 2.52 M/mcL (4.19-5.50); Red Cell Distribution Width 18.2 % (11.5-14.5); Segmented Neutrophils % 70.8 %; White Blood Count 8.3 K/mcL (4.3-11.1)
[2019-06-17 04:14] LABS: Calcium 8.1 mg/dL (8.6-10.3); Potassium 3.4 mEq/L (3.5-5.1)
[2019-06-17] MEDS: Piperacillin/Tazobactam 3.375 GM in 0.9 % Sodium Chloride Mini Bag 100 ML IVPB SCH (05:56)
[2019-06-17] MEDS: Pantoprazole 40 MG VIAL IVP SCH ×2 (05:56→18:34)
[2019-06-17] MEDS: Insulin LISPRO 300 UNITS/3 ML VIAL SQ SCH ×4 (09:01→22:07)
[2019-06-17] MEDS: Magic Mouthwash 10 ML UD Cup PO SCH ×3 (09:38→18:34)
[2019-06-17] MEDS: predniSONE 5 MG TABLET PO SCH (09:39)
[2019-06-17] MEDS: Silvasorb 44.4 ML TUBE TP SCH (09:39)
[2019-06-17] MEDS: Vancomycin Oral Soln 125 MG/2.5 ML UDC PO SCH ×4 (09:39→21:56)
[2019-06-17] MEDS ORDERED: valACYclovir 500 MG TABLET PO ONE (11:13)
[2019-06-17] MEDS ORDERED: Lidocaine -MPF 1% 5 ML AMPUL INFILT ONE (11:15)
[2019-06-17] MEDS: levoFLOXacin 500 MG/100 ML 500 MG/100 ML BAG IVPB SCH (14:33)
[2019-06-17] MEDS: traZODone 50 MG TABLET PO SCH (21:54)
[2019-06-17 23:34] LABS: Beta Globulin (PEP) 0.38 g/dL (0.48-1.10)
[2019-06-18] MEDS: *HR* HYDROcodone/Acet 5/325 mg TABLET PO PRN (00:57)
[2019-06-18] MEDS: [UNRECOGNIZED DRUG - OTHER] PO SCH ×2 (00:58→22:46)
[2019-06-18] MEDS: Pantoprazole 40 MG VIAL IVP SCH ×2 (04:58→17:32)
[2019-06-18 05:27] LABS: Basophils % 0.1 %; Eosinophils # 0.2 K/mcL (0.0-0.6); Eosinophils % 2.4 %; Hematocrit 23.6 % (37.5-50.1); Hemoglobin 7.7 g/dL (12.9-16.9); Immature Granulocytes % 0.6 % (0-4); Lymphocytes # 1.3 K/mcL (0.6-4.6); Lymphocytes % 18.5 %; Mean Corpuscular HGB Conc 32.6 g/dL (31.6-35.5); Mean Corpuscular Hemoglobin 31.8 pg (28.0-33.3); Mean Corpuscular Volume 97.5 fL (83.0-100.0); Mean Platelet Volume 9.6 fL (9.4-12.4); Monocytes # 0.9 K/mcL (0.0-1.3); Monocytes % 12.2 %; Neutrophils # 4.7 K/mcL (1.6-8.9); Red Blood Count 2.42 M/mcL (4.19-5.50); Red Cell Distribution Width 18.4 % (11.5-14.5); Segmented Neutrophils % 66.2 %; White Blood Count 7.1 K/mcL (4.3-11.1)
[2019-06-18 05:28] LABS: Platelet Count 94 K/mcL (140-400)
[2019-06-18 05:44] LABS: Calcium 7.7 mg/dL (8.6-10.3); Potassium 3.4 mEq/L (3.5-5.1)
[2019-06-18] MEDS ORDERED: *HR* Heparin 10,000 UNIT/10 ML VIAL IV PRN (07:23)
[2019-06-18] MEDS ORDERED: 0.9 % Sodium Chloride 250 ML IVC PRN (07:23)
[2019-06-18] MEDS ORDERED: 0.9 % Sodium Chloride 1,000 ML PRIME SCH (07:30)
[2019-06-18] MEDS: Magic Mouthwash 10 ML UD Cup PO SCH ×3 (08:10→17:33)
[2019-06-18] MEDS: Insulin LISPRO 300 UNITS/3 ML VIAL SQ SCH ×4 (08:28→22:43)
[2019-06-18 08:30] LABS: Immunoglobulin A 161 mg/dL (68-408); Immunoglobulin G 527 mg/dL (768-1632); Immunoglobulin M 25 mg/dL (35-263)
[2019-06-18 08:31] LABS: IFE Reflexed IFE Done
[2019-06-18] MEDS: Vancomycin Oral Soln 125 MG/2.5 ML UDC PO SCH ×4 (10:12→22:41)
[2019-06-18] MEDS: predniSONE 5 MG TABLET PO SCH (10:12)
[2019-06-18] MEDS: Silvasorb 44.4 ML TUBE TP SCH (10:20)
[2019-06-18] MEDS: DAPTOMYCIN IVPB SCH (17:33)
[2019-06-18] MEDS: SODIUM CHLORIDE 0.9% IVPB SCH (17:33)
[2019-06-19] MEDS: Pantoprazole 40 MG VIAL IVP SCH ×2 (04:51→17:37)
[2019-06-19] MEDS: Acetaminophen 325 MG TABLET PO PRN (04:51)
[2019-06-19 05:22] LABS: Hematocrit 25.2 % (37.5-50.1); Hemoglobin 8.2 g/dL (12.9-16.9)
[2019-06-19 06:14] LABS: Potassium 3.4 mEq/L (3.5-5.1)
[2019-06-19] MEDS: Insulin LISPRO 300 UNITS/3 ML VIAL SQ SCH ×4 (08:58→23:02)
[2019-06-19] MEDS: *HR* HYDROcodone/Acet 5/325 mg TABLET PO PRN ×2 (09:08→23:00)
[2019-06-19] MEDS: Silvasorb 44.4 ML TUBE TP SCH (09:09)
[2019-06-19] MEDS: Vancomycin Oral Soln 125 MG/2.5 ML UDC PO SCH ×4 (09:09→23:00)
[2019-06-19] MEDS: predniSONE 5 MG TABLET PO SCH (09:09)
[2019-06-19] MEDS: Magic Mouthwash 10 ML UD Cup PO SCH ×3 (09:09→17:37)
[2019-06-19] MEDS: levoFLOXacin 500 MG/100 ML 500 MG/100 ML BAG IVPB SCH (12:06)
[2019-06-19] MEDS: [UNRECOGNIZED DRUG - OTHER] PO SCH (23:01)
[2019-06-20] MEDS: Pantoprazole 40 MG VIAL IVP SCH ×2 (05:07→17:39)
[2019-06-20 05:19] LABS: Hematocrit 25.4 % (37.5-50.1); Hemoglobin 8.2 g/dL (12.9-16.9)
[2019-06-20 05:36] LABS: Calcium 8.3 mg/dL (8.6-10.3); Potassium 4.1 mEq/L (3.5-5.1)
[2019-06-20] MEDS: Insulin LISPRO 300 UNITS/3 ML VIAL SQ SCH ×4 (07:30→20:54)
[2019-06-20] MEDS ORDERED: *HR* Heparin 10,000 UNIT/10 ML VIAL IV PRN (07:56)
[2019-06-20] MEDS ORDERED: 0.9 % Sodium Chloride 250 ML IVC PRN (07:56)
[2019-06-20] MEDS: predniSONE 5 MG TABLET PO SCH (11:34)
[2019-06-20] MEDS: *HR* HYDROcodone/Acet 5/325 mg TABLET PO PRN ×3 (11:35→23:35)
[2019-06-20] MEDS: Magic Mouthwash 10 ML UD Cup PO SCH ×3 (11:36→17:39)
[2019-06-20] MEDS: Vancomycin Oral Soln 125 MG/2.5 ML UDC PO SCH ×2 (11:36→20:54)
[2019-06-20] MEDS: Silvasorb 44.4 ML TUBE TP SCH (11:50)
[2019-06-20] MEDS: SODIUM CHLORIDE 0.9% IVPB SCH (17:40)
[2019-06-20] MEDS: DAPTOMYCIN IVPB SCH (17:40)
[2019-06-20] MEDS: [UNRECOGNIZED DRUG - OTHER] PO SCH (23:21)
[2019-06-21 03:23] LABS: Hematocrit 25.4 % (37.5-50.1); Hemoglobin 7.9 g/dL (12.9-16.9)
[2019-06-21 03:41] LABS: Calcium 8.1 mg/dL (8.6-10.3); Potassium 4.1 mEq/L (3.5-5.1)
[2019-06-21] MEDS: Pantoprazole 40 MG VIAL IVP SCH ×2 (06:03→16:29)
[2019-06-21] MEDS: Magic Mouthwash 10 ML UD Cup PO SCH ×3 (09:34→16:29)
[2019-06-21] MEDS: predniSONE 5 MG TABLET PO SCH (09:39)
[2019-06-21] MEDS: Vancomycin Oral Soln 125 MG/2.5 ML UDC PO SCH ×2 (09:40→22:32)
[2019-06-21] MEDS: Insulin LISPRO 300 UNITS/3 ML VIAL SQ SCH ×4 (09:40→22:34)
[2019-06-21] MEDS: levoFLOXacin 500 MG/100 ML 500 MG/100 ML BAG IVPB SCH (12:19)
[2019-06-21] MEDS: *HR* HYDROcodone/Acet 5/325 mg TABLET PO PRN ×2 (16:28→22:32)
[2019-06-21] MEDS: Silvasorb 44.4 ML TUBE TP SCH ×2 (16:36→21:00)
[2019-06-21] MEDS: [UNRECOGNIZED DRUG - OTHER] PO SCH (22:33)
[2019-06-22] MEDS: Acetaminophen 325 MG TABLET PO PRN (02:20)
[2019-06-22 02:48] LABS: Hematocrit 25.9 % (37.5-50.1); Hemoglobin 7.9 g/dL (12.9-16.9)
[2019-06-22 03:05] LABS: Calcium 8.6 mg/dL (8.6-10.3); Potassium 3.9 mEq/L (3.5-5.1)
[2019-06-22] MEDS: *HR* HYDROcodone/Acet 5/325 mg TABLET PO PRN ×2 (05:27→21:28)
[2019-06-22] MEDS: Pantoprazole 40 MG VIAL IVP SCH ×2 (05:27→17:15)
[2019-06-22] MEDS: predniSONE 5 MG TABLET PO SCH (09:48)
[2019-06-22] MEDS: Magic Mouthwash 10 ML UD Cup PO SCH ×3 (09:49→17:15)
[2019-06-22] MEDS: Insulin LISPRO 300 UNITS/3 ML VIAL SQ SCH ×4 (09:50→21:28)
[2019-06-22] MEDS: Vancomycin Oral Soln 125 MG/2.5 ML UDC PO SCH ×2 (09:51→21:28)
[2019-06-22] MEDS: Silvasorb 44.4 ML TUBE TP SCH (09:51)
[2019-06-22] MEDS: [UNRECOGNIZED DRUG - OTHER] PO SCH (21:29)
[2019-06-23 03:45] LABS: Hematocrit 26.3 % (37.5-50.1); Hemoglobin 8.5 g/dL (12.9-16.9)
[2019-06-23 04:11] LABS: Calcium 8.4 mg/dL (8.6-10.3)
[2019-06-23] MEDS: Pantoprazole 40 MG VIAL IVP SCH (05:06)
[2019-06-23] MEDS ORDERED: 0.9 % Sodium Chloride 250 ML IVC PRN (07:12)
[2019-06-23] MEDS: Magic Mouthwash 10 ML UD Cup PO SCH ×3 (09:03→17:05)
[2019-06-23] MEDS: predniSONE 5 MG TABLET PO SCH (09:03)
[2019-06-23] MEDS: Vancomycin Oral Soln 125 MG/2.5 ML UDC PO SCH ×2 (09:03→21:48)
[2019-06-23] MEDS: *HR* HYDROcodone/Acet 5/325 mg TABLET PO PRN ×2 (09:03→21:48)
[2019-06-23] MEDS: Insulin LISPRO 300 UNITS/3 ML VIAL SQ SCH ×4 (09:03→21:49)
[2019-06-23] MEDS: Silvasorb 44.4 ML TUBE TP SCH (10:00)
[2019-06-23] MEDS ORDERED: *HR* Heparin 10,000 UNIT/10 ML VIAL IV PRN (11:15)
[2019-06-23] MEDS: levoFLOXacin 500 MG/100 ML 500 MG/100 ML BAG IVPB SCH (15:23)
[2019-06-23 15:55] LABS: Basophils % 0.6 %; Eosinophils # 0.1 K/mcL (0.0-0.6); Hematocrit 27.4 % (37.5-50.1); Hemoglobin 8.7 g/dL (12.9-16.9); Immature Granulocytes % 0.3 % (0-4); Lymphocytes # 1.1 K/mcL (0.6-4.6); Lymphocytes % 17.2 %; Mean Corpuscular HGB Conc 31.8 g/dL (31.6-35.5); Mean Corpuscular Hemoglobin 31.9 pg (28.0-33.3); Mean Corpuscular Volume 100.4 fL (83.0-100.0); Mean Platelet Volume 9.8 fL (9.4-12.4); Monocytes # 0.6 K/mcL (0.0-1.3); Monocytes % 9.1 %; Neutrophils # 4.5 K/mcL (1.6-8.9); Platelet Count 118 K/mcL (140-400); Red Blood Count 2.73 M/mcL (4.19-5.50); Red Cell Distribution Width 17.9 % (11.5-14.5); Segmented Neutrophils % 70.8 %; White Blood Count 6.4 K/mcL (4.3-11.1)
[2019-06-23 16:15] LABS: C-Reactive Protein 17 mg/L (Less than 10); Calcium 8.3 mg/dL (8.6-10.3); Creatine Kinase 12 Units/L (30-223); Potassium 3.6 mEq/L (3.5-5.1)
[2019-06-23] MEDS: DAPTOMYCIN IVPB SCH (17:05)
[2019-06-23] MEDS: SODIUM CHLORIDE 0.9% IVPB SCH (17:05)
[2019-06-23] MEDS: *HR* Heparin 5,000 UNIT/ML VIAL SQ SCH (17:05)
[2019-06-23] MEDS: [UNRECOGNIZED DRUG - OTHER] PO SCH (21:49)
[2019-06-24] MEDS: Acetaminophen 325 MG TABLET PO PRN (04:29)
[2019-06-24 04:59] LABS: Basophils % 0.4 %; Eosinophils # 0.3 K/mcL (0.0-0.6); Eosinophils % 3.4 %; Hematocrit 25.9 % (37.5-50.1); Hemoglobin 8.5 g/dL (12.9-16.9); Immature Granulocytes % 0.3 % (0-4); Lymphocytes # 1.6 K/mcL (0.6-4.6); Lymphocytes % 21.3 %; Mean Corpuscular HGB Conc 32.8 g/dL (31.6-35.5); Mean Corpuscular Hemoglobin 32.2 pg (28.0-33.3); Mean Corpuscular Volume 98.1 fL (83.0-100.0); Mean Platelet Volume 9.5 fL (9.4-12.4); Monocytes # 0.9 K/mcL (0.0-1.3); Monocytes % 11.8 %; Neutrophils # 4.7 K/mcL (1.6-8.9); Platelet Count 120 K/mcL (140-400); Red Blood Count 2.64 M/mcL (4.19-5.50); Red Cell Distribution Width 18.1 % (11.5-14.5); Segmented Neutrophils % 62.8 %; White Blood Count 7.5 K/mcL (4.3-11.1)
[2019-06-24 05:18] LABS: Calcium 8.4 mg/dL (8.6-10.3); Magnesium 1.8 mg/dL (1.6-2.6); Phosphorous 1.7 mg/dL (2.7-4.5); Potassium 3.9 mEq/L (3.5-5.1)
[2019-06-24] MEDS: *HR* Heparin 5,000 UNIT/ML VIAL SQ SCH ×2 (06:18→17:44)
[2019-06-24] MEDS: Magic Mouthwash 10 ML UD Cup PO SCH ×3 (08:58→17:44)
[2019-06-24] MEDS: predniSONE 5 MG TABLET PO SCH (08:59)
[2019-06-24] MEDS: Insulin LISPRO 300 UNITS/3 ML VIAL SQ SCH ×4 (09:01→22:46)
[2019-06-24] MEDS: Vancomycin Oral Soln 125 MG/2.5 ML UDC PO SCH ×2 (09:01→22:44)
[2019-06-24] MEDS: Silvasorb 44.4 ML TUBE TP SCH (09:01)
[2019-06-24] MEDS: *HR* HYDROcodone/Acet 5/325 mg TABLET PO PRN (10:08)
[2019-06-24] MEDS: [UNRECOGNIZED DRUG - OTHER] PO SCH (22:46)
[2019-06-25] MEDS: *HR* Heparin 5,000 UNIT/ML VIAL SQ SCH ×2 (06:30→17:10)
[2019-06-25] MEDS ORDERED: 0.9 % Sodium Chloride 250 ML IVC PRN (07:18)
[2019-06-25] MEDS ORDERED: Acetaminophen 325 MG TABLET PO PRN (08:29)
[2019-06-25] MEDS ORDERED: *HR* Heparin 10,000 UNIT/10 ML VIAL IV PRN (09:23)
[2019-06-25] MEDS: *HR* HYDROcodone/Acet 5/325 mg TABLET PO PRN ×2 (09:33→21:30)
[2019-06-25] MEDS: Magic Mouthwash 10 ML UD Cup PO SCH ×3 (12:17→16:51)
[2019-06-25] MEDS: predniSONE 5 MG TABLET PO SCH (12:43)
[2019-06-25] MEDS: Vancomycin Oral Soln 125 MG/2.5 ML UDC PO SCH ×2 (12:44→21:30)
[2019-06-25] MEDS: levoFLOXacin 500 MG/100 ML 500 MG/100 ML BAG IVPB SCH (12:46)
[2019-06-25] MEDS: Silvasorb 44.4 ML TUBE TP SCH (12:47)
[2019-06-25] MEDS: Insulin LISPRO 300 UNITS/3 ML VIAL SQ SCH ×4 (12:48→20:30)
[2019-06-25] MEDS: DAPTOMYCIN IVPB SCH (16:49)
[2019-06-25] MEDS: SODIUM CHLORIDE 0.9% IVPB SCH (16:49)
[2019-06-25] MEDS: [UNRECOGNIZED DRUG - OTHER] PO SCH (21:31)
[2019-06-26] MEDS: *HR* Heparin 5,000 UNIT/ML VIAL SQ SCH ×2 (05:55→17:41)
[2019-06-26 06:54] LABS: Basophils % 0.5 %; Eosinophils # 0.1 K/mcL (0.0-0.6); Eosinophils % 2.1 %; Hematocrit 27.3 % (37.5-50.1); Hemoglobin 8.4 g/dL (12.9-16.9); Immature Granulocytes % 0.5 % (0-4); Lymphocytes # 1.7 K/mcL (0.6-4.6); Lymphocytes % 28.5 %; Mean Corpuscular HGB Conc 30.8 g/dL (31.6-35.5); Mean Corpuscular Hemoglobin 31.3 pg (28.0-33.3); Mean Corpuscular Volume 101.9 fL (83.0-100.0); Mean Platelet Volume 9.3 fL (9.4-12.4); Monocytes # 0.6 K/mcL (0.0-1.3); Neutrophils # 3.6 K/mcL (1.6-8.9); Platelet Count 116 K/mcL (140-400); Red Blood Count 2.68 M/mcL (4.19-5.50); Red Cell Distribution Width 17.6 % (11.5-14.5); Segmented Neutrophils % 58.4 %; White Blood Count 6.1 K/mcL (4.3-11.1)
[2019-06-26] MEDS: Magic Mouthwash 10 ML UD Cup PO SCH ×3 (07:57→16:41)
[2019-06-26] MEDS: Vancomycin Oral Soln 125 MG/2.5 ML UDC PO SCH ×2 (07:57→22:30)
[2019-06-26] MEDS: predniSONE 5 MG TABLET PO SCH (07:57)
[2019-06-26] MEDS: Insulin LISPRO 300 UNITS/3 ML VIAL SQ SCH ×4 (08:05→21:36)
[2019-06-26 10:08] LABS: Calcium 8.6 mg/dL (8.6-10.3); Magnesium 1.7 mg/dL (1.6-2.6); Phosphorous 1.3 mg/dL (2.7-4.5); Potassium 3.7 mEq/L (3.5-5.1)
[2019-06-26] MEDS: Silvasorb 44.4 ML TUBE TP SCH (11:00)
[2019-06-26] MEDS: [UNRECOGNIZED DRUG - OTHER] PO SCH (22:30)
[2019-06-26] MEDS: *HR* HYDROcodone/Acet 5/325 mg TABLET PO PRN (22:31)
[2019-06-27] MEDS: *HR* Heparin 5,000 UNIT/ML VIAL SQ SCH ×2 (05:46→18:08)
[2019-06-27 06:05] LABS: Basophils % 0.4 %; Eosinophils # 0.1 K/mcL (0.0-0.6); Eosinophils % 2.7 %; Hematocrit 24.8 % (37.5-50.1); Hemoglobin 7.8 g/dL (12.9-16.9); Immature Granulocytes % 0.4 % (0-4); Lymphocytes # 1.4 K/mcL (0.6-4.6); Lymphocytes % 27.4 %; Mean Corpuscular HGB Conc 31.5 g/dL (31.6-35.5); Mean Corpuscular Hemoglobin 31.8 pg (28.0-33.3); Mean Corpuscular Volume 101.2 fL (83.0-100.0); Mean Platelet Volume 9.4 fL (9.4-12.4); Monocytes # 0.5 K/mcL (0.0-1.3); Monocytes % 10.3 %; Platelet Count 101 K/mcL (140-400); Red Blood Count 2.45 M/mcL (4.19-5.50); Red Cell Distribution Width 17.1 % (11.5-14.5); Segmented Neutrophils % 58.8 %; White Blood Count 5.2 K/mcL (4.3-11.1)
[2019-06-27 06:31] LABS: Calcium 8.5 mg/dL (8.6-10.3); Magnesium 1.7 mg/dL (1.6-2.6); Phosphorous 1.8 mg/dL (2.7-4.5); Potassium 3.6 mEq/L (3.5-5.1)
[2019-06-27] MEDS: Insulin LISPRO 300 UNITS/3 ML VIAL SQ SCH ×4 (07:57→22:19)
[2019-06-27] MEDS: predniSONE 5 MG TABLET PO SCH (08:20)
[2019-06-27] MEDS: Vancomycin Oral Soln 125 MG/2.5 ML UDC PO SCH ×2 (08:20→22:18)
[2019-06-27] MEDS: Magic Mouthwash 10 ML UD Cup PO SCH ×3 (08:21→16:30)
[2019-06-27] MEDS: Silvasorb 44.4 ML TUBE TP SCH (08:22)
[2019-06-27] MEDS: levoFLOXacin 500 MG/100 ML 500 MG/100 ML BAG IVPB SCH (12:56)
[2019-06-27] MEDS: DAPTOMYCIN IVPB SCH (16:22)
[2019-06-27] MEDS: SODIUM CHLORIDE 0.9% IVPB SCH (16:22)
[2019-06-27] MEDS: [UNRECOGNIZED DRUG - OTHER] PO SCH (22:20)
[2019-06-27] MEDS: *HR* HYDROcodone/Acet 5/325 mg TABLET PO PRN (22:21)
[2019-06-28] MEDS ORDERED: *HR* Promethazine 25 MG/ML VIAL IVP ONE ×2 (00:20→01:22)
[2019-06-28 00:55] LABS: Hematocrit 28.2 % (37.5-50.1); Mean Corpuscular HGB Conc 31.9 g/dL (31.6-35.5); Mean Corpuscular Hemoglobin 32.4 pg (28.0-33.3); Mean Corpuscular Volume 101.4 fL (83.0-100.0); Mean Platelet Volume 10.3 fL (9.4-12.4); Platelet Count 146 K/mcL (140-400); Red Blood Count 2.78 M/mcL (4.19-5.50); Red Cell Distribution Width 17.2 % (11.5-14.5); White Blood Count 6.4 K/mcL (4.3-11.1)
[2019-06-28 01:18] LABS: Calcium 8.7 mg/dL (8.6-10.3); Potassium 4.1 mEq/L (3.5-5.1)
[2019-06-28] MEDS: *HR* Heparin 5,000 UNIT/ML VIAL SQ SCH ×2 (05:01→18:36)
[2019-06-28] MEDS: Insulin LISPRO 300 UNITS/3 ML VIAL SQ SCH ×3 (07:41→16:30)
[2019-06-28] MEDS: predniSONE 5 MG TABLET PO SCH (08:18)
[2019-06-28] MEDS: Magic Mouthwash 10 ML UD Cup PO SCH ×3 (08:18→16:30)
[2019-06-28] MEDS: Vancomycin Oral Soln 125 MG/2.5 ML UDC PO SCH (08:19)
[2019-06-28] MEDS ORDERED: 0.9 % Sodium Chloride 250 ML IVC PRN (09:26)
[2019-06-28] MEDS ORDERED: *HR* Heparin 10,000 UNIT/10 ML VIAL IV PRN (09:26)
[2019-06-28] MEDS: Silvasorb 44.4 ML TUBE TP SCH (13:23)
[2019-06-28 17:45] VITALS: BP 99/56
[2019-06-30 12:03] LABS: Total Volume 24 Hour,Urine 0.73 Liters (0.80-1.80)
[2019-06-30 12:48] LABS: Protein/Creatinine Ratio,Urine 0.84 mg/mg (0.00-0.20); Sodium, Urine 18.3 mEq/L
== END 2019-06-28 19:30 | DRG 853 ==
LOC: 2NNU 17:13 → EMEROOARM 17:13 → SUATTDRO 19:57 → 2NNU 21:05 → SUATTDRO 06-03 09:41 → 2NENU 06-05 11:02
PROVIDERS: ADMIT Family Medicine; ATTEND Internal Medicine

== ENCOUNTER 2019-12-02 13:44 | Inpatient (IN) ==
[2019-12-02] MEDS ORDERED: *HR* OxyCODONE/APAP 10/325 TABLET PO ONE (13:47)
[2019-12-02 14:48] LABS: INR 1.1
[2019-12-02 14:57] LABS: Albumin 3.6 g/dL (3.5-5.7); Albumin/Globulin Ratio 1.5 (1.1-2.2); Bilirubin,Direct 0.2 mg/dL (0.0-0.2); Bilirubin,Indirect 0.4 mg/dL (0.0-1.0); Bilirubin,Total 0.6 mg/dL (0.3-1.0); Calcium 9.2 mg/dL (8.6-10.3); Globulin 2.4 g/dL (2.4-3.5); Magnesium 1.8 mg/dL (1.6-2.6); Potassium 4.2 mEq/L (3.5-5.1); Troponin I 0.03 ng/mL (< 0.04)
[2019-12-02 15:35] LABS: Basophils # 0.1 K/mcL (0.0-0.2); Basophils % 0.7 %; Eosinophils # 0.2 K/mcL (0.0-0.6); Eosinophils % 2.6 %; Hematocrit 35.6 % (37.5-50.1); Hemoglobin 10.4 g/dL (12.9-16.9); Immature Granulocytes % 0.4 % (0-4); Lymphocytes # 1.7 K/mcL (0.6-4.6); Lymphocytes % 21.9 %; Mean Corpuscular HGB Conc 29.2 g/dL (31.6-35.5); Mean Corpuscular Hemoglobin 31.5 pg (28.0-33.3); Mean Corpuscular Volume 107.9 fL (83.0-100.0); Mean Platelet Volume 10.6 fL (9.4-12.4); Monocytes # 0.7 K/mcL (0.0-1.3); Monocytes % 9.1 %; Neutrophils # 4.9 K/mcL (1.6-8.9); Platelet Count 145 K/mcL (140-400); Red Cell Distribution Width 13.2 % (11.5-14.5); Segmented Neutrophils % 65.3 %; White Blood Count 7.6 K/mcL (4.3-11.1)
[2019-12-02] MEDS ORDERED: Furosemide 40 MG/4 ML VIAL IVP ONE (15:39)
[2019-12-02] MEDS ORDERED: Ondansetron 4 MG/2 ML VIAL IVP PRN (17:27)
[2019-12-02] MEDS ORDERED: Naloxone 0.4 MG/ML INJ IVP PRN (17:27)
[2019-12-02] MEDS: Furosemide 40 MG/4 ML VIAL IVP SCH (21:56)
[2019-12-02] MEDS ORDERED: Melatonin 3 MG TABLET PO ONE (22:25)
[2019-12-03] MEDS ORDERED: Melatonin 3 MG TABLET PO ONE (01:13)
[2019-12-03] MEDS: Acetaminophen 325 MG TABLET PO PRN ×2 (05:38→12:04)
[2019-12-03 05:40] LABS: Basophils % 0.7 %; Eosinophils # 0.2 K/mcL (0.0-0.6); Eosinophils % 4.1 %; Hematocrit 30.5 % (37.5-50.1); Hemoglobin 9.5 g/dL (12.9-16.9); Immature Granulocytes % 0.2 % (0-4); Lymphocytes # 1.4 K/mcL (0.6-4.6); Mean Corpuscular HGB Conc 31.1 g/dL (31.6-35.5); Mean Corpuscular Volume 105.9 fL (83.0-100.0); Mean Platelet Volume 10.3 fL (9.4-12.4); Monocytes # 0.6 K/mcL (0.0-1.3); Neutrophils # 3.7 K/mcL (1.6-8.9); Platelet Count 108 K/mcL (140-400); Red Blood Count 2.88 M/mcL (4.19-5.50); White Blood Count 5.9 K/mcL (4.3-11.1)
[2019-12-03 05:49] LABS: INR 1.2; Prothrombin Time 13.4 Seconds (9.4-12.1)
[2019-12-03 05:51] LABS: Activated Partial Thrombo Time 30.2 Seconds (26.0-36.0)
[2019-12-03 05:59] LABS: Magnesium 1.7 mg/dL (1.6-2.6)
[2019-12-03] MEDS: Furosemide 40 MG/4 ML VIAL IVP SCH ×2 (09:25→20:06)
[2019-12-03] MEDS: *HR* OxyCODONE/APAP 10/325 TABLET PO PRN ×2 (14:18→22:18)
[2019-12-03] MEDS ORDERED: Melatonin 3 MG TABLET PO SCH (21:00)
[2019-12-04 01:56] LABS: Hematocrit 30.4 % (37.5-50.1); Hemoglobin 9.7 g/dL (12.9-16.9); Mean Corpuscular HGB Conc 31.9 g/dL (31.6-35.5); Mean Corpuscular Hemoglobin 32.9 pg (28.0-33.3); Mean Corpuscular Volume 103.1 fL (83.0-100.0); Mean Platelet Volume 9.9 fL (9.4-12.4); Platelet Count 103 K/mcL (140-400); Red Blood Count 2.95 M/mcL (4.19-5.50); Red Cell Distribution Width 12.9 % (11.5-14.5); White Blood Count 5.1 K/mcL (4.3-11.1)
[2019-12-04 02:12] LABS: INR 1.2
[2019-12-04 02:25] LABS: Calcium 8.9 mg/dL (8.6-10.3); Potassium 3.7 mEq/L (3.5-5.1)
[2019-12-04] MEDS: *HR* OxyCODONE/APAP 10/325 TABLET PO PRN ×2 (06:11→20:42)
[2019-12-04] MEDS: Furosemide 40 MG/4 ML VIAL IVP SCH (08:04)
[2019-12-04] MEDS ORDERED: *HR* Propofol 200 MG/20 ML VIAL IVP ONE (08:44)
[2019-12-04] MEDS ORDERED: Lidocaine -MPF 2% 2 ML VIAL ONE (08:44)
[2019-12-04] MEDS ORDERED: NON-FORMULARY MEDICATION 1 EACH EACH (Pantoprazole Sodium [Protonix] 20 MG) PO SCH (09:00)
[2019-12-04] MEDS ORDERED: Clindamycin 900 MG/50 ML 900 MG/50 ML IV.SOLN IVPB ONE (09:08)
[2019-12-04] MEDS ORDERED: Acetaminophen 325 MG TABLET PO PRN (10:52)
[2019-12-04] MEDS ORDERED: Ondansetron 4 MG/2 ML VIAL IVP PRN (10:52)
[2019-12-04] MEDS ORDERED: Naloxone 0.4 MG/ML INJ IVP PRN (10:52)
[2019-12-04] MEDS ORDERED: Doxycycline 100 MG CAPSULE PO SCH (12:15)
[2019-12-04] MEDS: Doxycycline 100 MG CAPSULE PO SCH ×2 (13:17→20:27)
[2019-12-04] MEDS: Melatonin 3 MG TABLET PO SCH (20:28)
[2019-12-04] MEDS ORDERED: Furosemide 40 MG/4 ML VIAL IVP SCH (21:00)
[2019-12-05] MEDS: *HR* OxyCODONE/APAP 10/325 TABLET PO PRN ×3 (04:49→21:14)
[2019-12-05 06:56] LABS: Hematocrit 32.6 % (37.5-50.1); Hemoglobin 10.2 g/dL (12.9-16.9); Mean Corpuscular HGB Conc 31.3 g/dL (31.6-35.5); Mean Corpuscular Hemoglobin 32.3 pg (28.0-33.3); Mean Corpuscular Volume 103.2 fL (83.0-100.0); Mean Platelet Volume 10.3 fL (9.4-12.4); Platelet Count 149 K/mcL (140-400); Red Blood Count 3.16 M/mcL (4.19-5.50); White Blood Count 6.5 K/mcL (4.3-11.1)
[2019-12-05 07:17] LABS: Calcium 8.9 mg/dL (8.6-10.3); Potassium 3.6 mEq/L (3.5-5.1)
[2019-12-05] MEDS: Doxycycline 100 MG CAPSULE PO SCH (08:30)
[2019-12-05] MEDS: hydrOXYzine pamoate 25 MG CAPSULE PO SCH (08:31)
[2019-12-05] MEDS: Melatonin 3 MG TABLET PO SCH (21:13)
[2019-12-06] MEDS: hydrOXYzine pamoate 25 MG CAPSULE PO SCH (08:01)
[2019-12-06 09:27] LABS: Hematocrit 32.4 % (37.5-50.1); Mean Corpuscular HGB Conc 30.9 g/dL (31.6-35.5); Mean Corpuscular Hemoglobin 31.7 pg (28.0-33.3); Mean Corpuscular Volume 102.9 fL (83.0-100.0); Mean Platelet Volume 10.1 fL (9.4-12.4); Platelet Count 125 K/mcL (140-400); Red Blood Count 3.15 M/mcL (4.19-5.50); White Blood Count 5.5 K/mcL (4.3-11.1)
[2019-12-06 09:46] LABS: BUN/Creatinine Ratio 19 (6-26); Blood Urea Nitrogen 27 mg/dL (8-23); C-Reactive Protein 11 mg/L (Less than 10); Calcium 9.2 mg/dL (8.6-10.3); Carbon Dioxide 40 mEq/L (23-29); Chloride 95 mEq/L (98-107); Glucose 96 mg/dL (70-105); Osmolality,Calculated 295 (280-300); Potassium 4.1 mEq/L (3.5-5.1); Sodium 140 mEq/L (136-145); eGFR For African Americans > 60 (> 60); eGFR For Non-African Americans 50 (> 60)
[2019-12-06] MEDS: *HR* OxyCODONE/APAP 10/325 TABLET PO PRN ×2 (13:30→21:14)
[2019-12-06] MEDS: Melatonin 3 MG TABLET PO SCH (21:15)
[2019-12-07 02:51] LABS: Hematocrit 29.8 % (37.5-50.1); Hemoglobin 9.8 g/dL (12.9-16.9); Mean Corpuscular HGB Conc 32.9 g/dL (31.6-35.5); Mean Corpuscular Hemoglobin 32.1 pg (28.0-33.3); Mean Corpuscular Volume 97.7 fL (83.0-100.0); Mean Platelet Volume 10.9 fL (9.4-12.4); Platelet Count 108 K/mcL (140-400); Red Blood Count 3.05 M/mcL (4.19-5.50); Red Cell Distribution Width 12.8 % (11.5-14.5)
[2019-12-07 02:57] LABS: BUN/Creatinine Ratio 21 (6-26); Blood Urea Nitrogen 28 mg/dL (8-23); Calcium 8.9 mg/dL (8.6-10.3); Carbon Dioxide 37 mEq/L (23-29); Chloride 97 mEq/L (98-107); Glucose 100 mg/dL (70-105); Osmolality,Calculated 294 (280-300); Sodium 139 mEq/L (136-145); eGFR For African Americans > 60 (> 60); eGFR For Non-African Americans 53 (> 60)
[2019-12-07] MEDS: *HR* OxyCODONE/APAP 10/325 TABLET PO PRN ×3 (03:53→21:27)
[2019-12-07] MEDS: hydrOXYzine pamoate 25 MG CAPSULE PO SCH (08:58)
[2019-12-07] MEDS: Melatonin 3 MG TABLET PO SCH (21:27)
[2019-12-08 04:51] LABS: Hematocrit 30.4 % (37.5-50.1); Hemoglobin 9.6 g/dL (12.9-16.9); Mean Corpuscular HGB Conc 31.6 g/dL (31.6-35.5); Mean Corpuscular Hemoglobin 33.1 pg (28.0-33.3); Mean Platelet Volume 10.3 fL (9.4-12.4); Platelet Count 106 K/mcL (140-400); Red Cell Distribution Width 12.7 % (11.5-14.5); White Blood Count 5.5 K/mcL (4.3-11.1)
[2019-12-08 05:19] LABS: BUN/Creatinine Ratio 23 (6-26); Blood Urea Nitrogen 28 mg/dL (8-23); Carbon Dioxide 41 mEq/L (23-29); Chloride 95 mEq/L (98-107); Glucose 107 mg/dL (70-105); Osmolality,Calculated 294 (280-300); Potassium 4.6 mEq/L (3.5-5.1); Sodium 139 mEq/L (136-145); eGFR For African Americans > 60 (> 60); eGFR For Non-African Americans 57 (> 60)
[2019-12-08 06:14] LABS: Mean Corpuscular Volume 104.8 fL (83.0-100.0)
[2019-12-08] MEDS: *HR* OxyCODONE/APAP 10/325 TABLET PO PRN ×3 (06:48→21:45)
[2019-12-08] MEDS: hydrOXYzine pamoate 25 MG CAPSULE PO SCH (09:14)
[2019-12-08] MEDS: DAPTOmycin 450 MG in 0.9 % Sodium Chloride 100 ML IVPB SCH (18:19)
[2019-12-08] MEDS: Melatonin 3 MG TABLET PO SCH (21:45)
[2019-12-09] MEDS: *HR* OxyCODONE/APAP 10/325 TABLET PO PRN ×2 (04:03→12:31)
[2019-12-09 04:05] LABS: Hematocrit 30.4 % (37.5-50.1); Hemoglobin 9.5 g/dL (12.9-16.9); Mean Corpuscular HGB Conc 31.3 g/dL (31.6-35.5); Mean Corpuscular Hemoglobin 31.9 pg (28.0-33.3); Mean Platelet Volume 10.4 fL (9.4-12.4); Platelet Count 107 K/mcL (140-400); Red Blood Count 2.98 M/mcL (4.19-5.50); Red Cell Distribution Width 12.8 % (11.5-14.5); White Blood Count 5.2 K/mcL (4.3-11.1)
[2019-12-09 04:14] LABS: BUN/Creatinine Ratio 23 (6-26); Blood Urea Nitrogen 29 mg/dL (8-23); Calcium 9.1 mg/dL (8.6-10.3); Carbon Dioxide 39 mEq/L (23-29); Chloride 95 mEq/L (98-107); Glucose 103 mg/dL (70-105); Osmolality,Calculated 292 (280-300); Potassium 4.5 mEq/L (3.5-5.1); Sodium 138 mEq/L (136-145); eGFR For African Americans > 60 (> 60); eGFR For Non-African Americans 55 (> 60)
[2019-12-09] MEDS: hydrOXYzine pamoate 25 MG CAPSULE PO SCH (09:23)
[2019-12-09 12:24] LABS: Creatine Kinase 18 Units/L (30-223)
[2019-12-09 12:26] VITALS: BP 120/78
[2019-12-09] MEDS: DAPTOmycin 450 MG in 0.9 % Sodium Chloride 100 ML IVPB SCH (15:18)
== END 2019-12-09 16:44 | DRG 628 ==
LOC: EMEROOARM 13:44 → 3BNU 13:44 → SUATTDRO 16:18 → 3BNU 17:27
PROVIDERS: ADMIT Internal Medicine; ATTEND Internal Medicine

== ENCOUNTER 2020-01-16 20:59 | Observation (INO) ==
[2020-01-16] MEDS ORDERED: 0.9 % Sodium Chloride 1,000 ML IVC ONE ×2 (21:05→23:12)
[2020-01-16] MEDS ORDERED: Hydrocortisone Sodium Succ 100 MG/2 ML VIAL IVP ONE (21:07)
[2020-01-16] MEDS ORDERED: Azithromycin 500 MG in 0.9 % Sodium Chloride 250 ML IVPB ONE (21:55)
[2020-01-16] MEDS ORDERED: Piperacillin/Tazobactam 3.375 GM in 0.9 % Sodium Chloride Mini Bag 100 ML IVPB ONE (21:55)
[2020-01-16 22:28] LABS: INR 1.2; Prothrombin Time 13.6 Seconds (9.4-12.1)
[2020-01-16 22:30] LABS: Activated Partial Thrombo Time 35.3 Seconds (26.0-36.0)
[2020-01-16] MEDS ORDERED: diazePAM 10 MG/2 ML SYRINGE IVP ONE (22:32)
[2020-01-16 22:36] LABS: ABG Base Excess -5 mEq/L (-2 to 3); ABG HCO3 24 mEq/L (21-27); ABG Oxygen Saturation 94 % (95-98); ABG PCO2 62 mmHg (35-45); ABG PH 7.19 pH Units (7.32-7.45); ABG PO2 90 mmHg (85-104); ABG TCO2 25 mEq/L (20-26); Blood Gas VT 550 cc
[2020-01-16 22:45] LABS: Alanine Aminotransferase 7 Units/L (7-52); Albumin 3.5 g/dL (3.5-5.7); Albumin/Globulin Ratio 1.3 (1.1-2.2); Alkaline Phosphatase 94 Units/L (34-104); Aspartate Amino Transferase 14 Units/L (13-39); BUN/Creatinine Ratio 16 (6-26); Bilirubin,Direct 0.3 mg/dL (0.0-0.2); Bilirubin,Indirect 0.4 mg/dL (0.0-1.0); Bilirubin,Total 0.7 mg/dL (0.3-1.0); Blood Urea Nitrogen 61 mg/dL (8-23); Calcium 8.9 mg/dL (8.6-10.3); Carbon Dioxide 25 mEq/L (23-29); Chloride 98 mEq/L (98-107); Ethanol < 10 mg/dL (Less than 10); Globulin 2.7 g/dL (2.4-3.5); Glucose 78 mg/dL (70-105); Osmolality,Calculated 306 (280-300); Potassium 3.9 mEq/L (3.5-5.1); Sodium 140 mEq/L (136-145); Total Protein 6.2 g/dL (6.4-8.9); eGFR For African Americans 20 (> 60); eGFR For Non-African Americans 16 (> 60)
[2020-01-16 22:52] LABS: Troponin I 0.05 ng/mL (< 0.04)
[2020-01-16 23:17] LABS: Adenovirus Not Detected (Not Detect); Bordetella Pertussis Not Detected (Not Detect); Chlamydophila pneumoniae Not Detected (Not Detect); Coronavirus 229E Not Detected (Not Detect); Coronavirus HKU1 Not Detected (Not Detect); Coronavirus NL63 Not Detected (Not Detect); Coronavirus OC43 Not Detected (Not Detect); Human Metapneumovirus Not Detected (Not Detect); Human Rhinovirus/Enterovirus Not Detected (Not Detect); Influenza A Subtype 2009 H1 Not Detected (Not Detect); Influenza B Not Detected (Not Detect); Mycoplasma pneumoniae Not Detected (Not Detect); Parainfluenza Virus 1 Not Detected (Not Detect); Parainfluenza Virus 2 Not Detected (Not Detect); Parainfluenza Virus 3 Not Detected (Not Detect); Parainfluenza Virus 4 Not Detected (Not Detect); Respiratory Syncytial Virus Not Detected (Not Detect); SARS-CoV-2 Not Detected (Not Detect)
[2020-01-16 23:30] LABS: Basophils % 0.2 %; Hematocrit 30.2 % (37.5-50.1); Hemoglobin 9.4 g/dL (12.9-16.9); Immature Granulocytes % 0.2 % (0-4); Lymphocytes # 0.4 K/mcL (0.6-4.6); Lymphocytes % 4.8 %; Mean Corpuscular HGB Conc 31.1 g/dL (31.6-35.5); Mean Corpuscular Hemoglobin 31.2 pg (28.0-33.3); Mean Corpuscular Volume 100.3 fL (83.0-100.0); Mean Platelet Volume 9.7 fL (9.4-12.4); Monocytes # 0.7 K/mcL (0.0-1.3); Monocytes % 8.6 %; Neutrophils # 7.2 K/mcL (1.6-8.9); Platelet Count 180 K/mcL (140-400); Red Blood Count 3.01 M/mcL (4.19-5.50); Red Cell Distribution Width 13.5 % (11.5-14.5); Segmented Neutrophils % 86.2 %; White Blood Count 8.3 K/mcL (4.3-11.1)
[2020-01-16 23:48] LABS: Platelet Estimate Normal (Normal); Reactive Lymphocytes Present (Not Present)
[2020-01-17] MEDS ORDERED: 0.9 % Sodium Chloride 1,000 ML IVC ONE (00:04)
[2020-01-17 00:18] LABS: Bilirubin,Urine Small (Negative); Blood,Urine Small (Negative); Clarity,Urine Clear (Clear); Color,Urine Yellow (Yellow); Glucose,Urine (UA) 100 mg/dL (Normal); Ketones,Urine Negative (Negative); Leukocyte Esterase,Urine Negative (Negative); Nitrite,Urine Negative (Negative); Protein,Urine 30 mg/dL (Neg-Trace); Specific Gravity,Urine 1.015 (1.010-1.025); Urobilinogen,Urine Normal (Normal)
[2020-01-17 00:23] LABS: Bacteria,Urine Few per hpf (None-Few); Hyaline Casts,Urine Few per lpf (None Seen); Mucus,Urine Few per lpf (None-Few); RBC,Urine 15-30 per hpf (0-3)
[2020-01-17 00:28] LABS: Amphetamine Screen,Urine Negative ng/mL (Cutoff=1000); Barbiturate Screen,Urine Negative ng/mL (Cutoff=200); Benzodiazepines Screen,Urine Negative ng/mL (Cutoff=200); Cannabinoid Screen,Urine Negative ng/mL (Cutoff = 50); Cocaine Screen,Urine Negative ng/mL (Cutoff= 300); Opiate Screen,Urine Negative ng/mL (Cutoff=300); Phencyclidine Screen,Urine Negative ng/mL (Cutoff=25)
[2020-01-17] MEDS ORDERED: Naloxone 0.4 MG/ML INJ IVP PRN (00:46)
[2020-01-17] MEDS: 0.9 % Sodium Chloride 1,000 ML IVC SCH ×2 (02:43→08:11)
[2020-01-17] MEDS ORDERED: Piperacillin/Tazobactam 3.375 GM in 0.9 % Sodium Chloride Mini Bag 100 ML IVPB SCH (06:00)
[2020-01-17] MEDS: Ipratropium/Albuterol Neb 3 ML IH SCH ×3 (06:09→11:05)
[2020-01-17 06:36] LABS: ABG Base Excess -10 mEq/L (-2 to 3); ABG HCO3 17 mEq/L (21-27); ABG Oxygen Saturation 93 % (95-98); ABG PCO2 37 mmHg (35-45); ABG PH 7.26 pH Units (7.32-7.45); ABG PO2 76 mmHg (85-104); ABG TCO2 18 mEq/L (20-26); Blood Gas Modality avaps; Blood Gas Pressure Support 35 cm H2O; Blood Gas VT 550 cc
[2020-01-17] MEDS: *HR* Heparin 5,000 UNIT/ML VIAL SQ SCH ×2 (06:52→07:27)
[2020-01-17 07:45] VITALS: BP 81/50
[2020-01-17 08:59] LABS: Acinetobacter baumannii by PCR Not Detected (Not Detect); Candida albicans by PCR Not Detected (Not Detect); Candida glabrata by PCR Not Detected (Not Detect); Candida krusei by PCR Not Detected (Not Detect); Candida parapsilosis by PCR Not Detected (Not Detect); Candida tropicalis by PCR Not Detected (Not Detect); Enterobacter cloacae Cmplx PCR Not Detected (Not Detect); Enterococcus by PCR Not Detected (Not Detect); Escherichia coli by PCR DETECTED (Not Detect); Klebsiella oxytoca by PCR Not Detected (Not Detect); Klebsiella pneumoniae by PCR Not Detected (Not Detect); Proteus by PCR Not Detected (Not Detect); Pseudomonas aeruginosa by PCR Not Detected (Not Detect); Serratia marcescens by PCR Not Detected (Not Detect); Staphylococcus aureus by PCR Not Detected (Not Detect); Staphylococcus by PCR Not Detected (Not Detect); Streptococcus agalactiae(B)PCR Not Detected (Not Detect); Streptococcus by PCR Not Detected (Not Detect); Streptococcus pneumoniae PCR Not Detected (Not Detect); Streptococcus pyogenes (A) PCR Not Detected (Not Detect); blaKPC Carbapenem-Resist Gene Not Detected (Not Detect)
[2020-01-17] MEDS ORDERED: allopurinoL 100 MG TABLET PO SCH (09:00)
[2020-01-17] MEDS ORDERED: *HR* FentaNYL (PF) 100 MCG/2 ML VIAL IVP PRN (11:19)
[2020-01-17] MEDS ORDERED: Haloperidol Lactate 5 MG/ML VIAL IVP SCH (12:00)
[2020-01-17] MEDS ORDERED: Azithromycin 500 MG in 0.9 % Sodium Chloride 250 ML IVPB SCH (20:00)
== END 2020-01-17 15:16 | disposition expired ==
LOC: 2ANU 20:59 → EMEROOARM 20:59 → SUATTDRO 01-17 00:42 → 2ANU 01-17 01:46
PROVIDERS: ADMIT Internal Medicine; ATTEND Family Medicine